=== PATIENT | female | born 1985 | race Caucasian/White ===

== ENCOUNTER 2018-03-09 08:00 | Outpatient (CLI) | payer MEDICAID ==
[2018-03-09 17:38] LABS: MUDS CUTOFF CONCENTRATIONS CUTOFF CONC BELOW:
[2018-03-09 18:33] LABS: AMPHETAMINE SCREEN,URINE NEGATIVE (NEGATIVE); BENZODIAZEPINES SCREEN, URINE NEGATIVE (NEGATIVE); COCAINE SCREEN URINE NEGATIVE (NEGATIVE); METHADONE SCREEN, URINE NEGATIVE (NEGATIVE); METHAMPHETAMINES SCREEN, URINE NEGATIVE (NEGATIVE); OPIATE SCREEN, URINE NEGATIVE (NEGATIVE); OXYCODONE SCREEN, URINE NEGATIVE (NEGATIVE); PROPOXYPHENE SCREEN, URINE NEGATIVE (NEGATIVE); TRICYCLIC ANTIDEPRESSANT,URINE NEGATIVE (NEGATIVE)
== END 2018-03-09 23:59 ==
LOC: LAB.R 08:00
PROVIDERS: ATTEND Registered Nurse
DX: Z36.9 Encounter for antenatal screening, unspecified (principal)
CPT/HCPCS: 80306; 87797

== ENCOUNTER 2018-03-09 15:53 | Outpatient (CLI) | payer MEDICAID ==
[2018-03-09 17:11] LABS: BASOPHILS # (AUTO) 0.1 10^3/uL (0.0-0.1); BASOPHILS % (AUTO) 0.7 %; EOSINOPHILS # (AUTO) 0.1 10^3/uL (0.0-0.7); HGB - HEMOGLOBIN 10.9 g/dL (12.0-16.0); LYMPHOCYTES # (AUTO) 1.9 10^3/uL (1.5-3.5); MEAN CORPUSCULAR HEMOGLOBIN 27.2 pg (27.0-31.0); MEAN CORPUSCULAR HGB CONC 32.4 g/dL (32.0-36.0); MEAN CORPUSCULAR VOLUME 83.8 fL (81.0-99.0); MEAN PLATELET VOLUME 8.7 fL (7.9-10.8); MONOCYTES # (AUTO) 0.5 10^3/uL (0.0-1.0); MONOCYTES % (AUTO) 5.3 %; NEUTROPHILS # (AUTO) 6.8 10^3/uL (1.5-6.6); PLT - PLATELET COUNT 220 10^3/uL (130-450); RED BLOOD COUNT 4.03 10^6/uL (4.20-5.40); RED CELL DISTRIBUTION WIDTH 13.6 % (12.0-15.0); WHITE BLOOD COUNT 9.3 x10^3/uL (4.8-10.8)
[2018-03-09 17:37] LABS: HB2 TOTAL 11.3 g/dL; HEMOGLOBIN A1C 0.37 g/dL; HEMOGLOBIN A1C % 5.1 % (4.6-6.2)
[2018-03-09 18:11] LABS: BILIRUBIN,URINE NEGATIVE (NEGATIVE); GLUCOSE, URINE (UA) NEGATIVE (NEGATIVE); KETONES,URINE (UA) NEGATIVE (NEGATIVE); LEUKOCYTE ESTERASE, URINE MODERATE (NEGATIVE); NITRITE,URINE NEGATIVE (NEGATIVE); OCCULT BLOOD,URINE NEGATIVE (NEGATIVE); PH,URINE 6.5 PH (5.0-7.5); PROTEIN,URINE NEGATIVE (NEGATIVE); UROBILINOGEN,URINE 0.2 (NORMAL) E.U./dL (NORMAL)
[2018-03-09 18:29] LABS: CLARITY,URINE CLEAR (CLEAR)
[2018-03-09 18:32] LABS: BACTERIA,URINE Few /HPF (None Seen); RBC,URINE 0-5 /HPF (0-5); SQUAMOUS EPITHELIAL CELL,UR MANY Squamous (<= Few)
[2018-03-10 12:53] LABS: HEPATITIS B SURFACE ANTIGEN NON-REACTIVE (NON-REACTIVE); HEPATITIS C ANTIBODY NON-REACTIVE (NON-REACTIVE)
[2018-03-10 14:21] LABS: HIV AG/AB 4TH GEN NON-REACTIVE (NON-REACTIVE)
[2018-03-11 12:02] LABS: HSV 2 IGG TYPE SPECIFIC AB <0.90 index
== END 2018-03-09 15:54 | disposition home or self-care (01) ==
LOC: LAB 15:53
PROVIDERS: ATTEND Registered Nurse
DX: Z36.9 Encounter for antenatal screening, unspecified (principal)
CPT/HCPCS: 36415; 80306; 81001; 81599; 82950; 83036; 85025; 86695; 86696; 86762; 86803; 86850; 86900; 86901; 87086; 87340; 87389; 87797

== ENCOUNTER 2018-03-10 21:08 | Outpatient (CLI) | payer MEDICAID ==
--- NOTE | 2018-03-10 22:33 | Ultrasound Report ---
Reason: ENCOUNTER FOR SCREENING,UNSPECIFIED Procedure Date: 03/10/2018 Accession Number: [id number] / [id number] Procedure: US - OB Detailed Eval CPT Code: FULL RESULT: EXAM: COMPLETE OBSTETRICAL ULTRASOUND EXAM DATE: 03/10/2018 10:11 PM. CLINICAL HISTORY: anatomic survey. COMPARISON: None. TECHNIQUE: Real-time sonographic evaluation of the fetus performed by the screening nurse. Multiple service support representative static images were saved for review. Additional transvaginal imaging to more accurately evaluate cervical length/placental position/etc. DATING: Established EGA 37 weeks 4 days with BETH 03/27/2018 based on LMP. EGA 37 weeks 4 days with BETH 03/27/2018 based on the current ultrasound. GENERAL EVALUATION Juarez . Cardiac activity: 133 bpm. movement: Visualized. Presentation: Cephalic. Placenta: Posterior position. No evidence for previa. Umbilical cord: 3 vessel cord. Central placental cord origin. Amniotic fluid: Subjectively normal. MVP 4.9 cm. BIOMETRY Bi-Parietal Diameter (BPD): 9.2 cm, 37 weeks 3 days Head Circumference (HC): 33.7 cm, 38 weeks 5 days Abdominal Circumference (AC): 33 cm, 37 weeks 0 days Femur Length (FL): 7.2 cm, 36 weeks 6 days Estimated Weight: 3137 g, 49 percentile for 37 weeks 4 days. ANATOMY Exam limited by late gestational age and maternal body habitus. The profile, face/nose/lips, 4 chamber heart, stomach, abdominal wall and cord insertion, diaphragm, kidneys, and bladder were visualized and demonstrate no abnormality. MATERNAL STRUCTURES Uterus: Unremarkable. Cervix: Long and closed. Transvaginal length 3.2 cm. Right ovary/adnexa: Unremarkable. Left ovary/adnexa: Unremarkable. Free fluid: None. IMPRESSION: 1. Juarez live intrauterine with gestational age 37 weeks 4 days based on today's exam. 2. Estimated weight is within expected limits for assigned dating. 3. Normal limited anatomic survey. No anatomic abnormalities are detected at this time. RADIA ADDENDUM: 03/10/18 22:40 Call report: Discussed by telephone with Dr. Person at 2240.
== END 2018-03-10 21:09 | disposition home or self-care (01) ==
LOC: DI 21:08
PROVIDERS: ATTEND Registered Nurse
DX: Z36.9 Encounter for antenatal screening, unspecified (principal); Z3A.37 37 weeks gestation of pregnancy
CPT/HCPCS: 76811

== ENCOUNTER 2018-03-13 07:59 | Outpatient (CLI) | payer MEDICAID | END 2018-03-13 08:00 | disposition home or self-care (01) | LOC: LAB 07:59 | PROVIDERS: ATTEND Registered Nurse | DX: O99.810 Abnormal glucose complicating pregnancy (principal) | CPT/HCPCS: 36415; 82951; 82952 ==

== ENCOUNTER 2018-03-24 22:34 | Inpatient (IN) | payer MEDICAID ==
[2018-03-24] MEDS ORDERED: SODIUM CHLORIDE FLUSH 0.9% 10 ML SYRINGE IVP PRN (22:56)
[2018-03-24] MEDS ORDERED: OXYTOCIN/SODIUM CHLORIDE 500 ML IV ONE (23:01)
[2018-03-24 23:17] LABS: RUPTURE OF MEMBRANES PLUS POSITIVE (NEGATIVE)
[2018-03-24] MEDS: LACTATED RINGERS 1,000 ML IV SCH (23:38)
[2018-03-24] MEDS ORDERED: OXYTOCIN/SODIUM CHLORIDE 500 ML IV SCH (23:45)
[2018-03-24 23:50] LABS: BASOPHILS # (AUTO) 0.1 10^3/uL (0.0-0.1); EOSINOPHILS # (AUTO) 0.1 10^3/uL (0.0-0.7); EOSINOPHILS % (AUTO) 0.9 %; HGB - HEMOGLOBIN 11.4 g/dL (12.0-16.0); LYMPHOCYTES # (AUTO) 2.4 10^3/uL (1.5-3.5); LYMPHOCYTES % (AUTO) 23.4 %; MEAN CORPUSCULAR HEMOGLOBIN 27.4 pg (27.0-31.0); MEAN CORPUSCULAR HGB CONC 33.8 g/dL (32.0-36.0); MEAN PLATELET VOLUME 8.8 fL (7.9-10.8); MONOCYTES # (AUTO) 0.5 10^3/uL (0.0-1.0); MONOCYTES % (AUTO) 5.1 %; NEUTROPHILS % (AUTO) 69.6 %; PLT - PLATELET COUNT 239 10^3/uL (130-450); RED BLOOD COUNT 4.17 10^6/uL (4.20-5.40); RED CELL DISTRIBUTION WIDTH 14.1 % (12.0-15.0); WHITE BLOOD COUNT 10.1 x10^3/uL (4.8-10.8)
[2018-03-25] MEDS ORDERED: fent/BUPIV 2 MCG/0.125% 250 ML EP ONE (00:11)
[2018-03-25] MEDS ORDERED: SODIUM CHLORIDE FLUSH 0.9% 10 ML SYRINGE IVP SCH (01:00)
[2018-03-25] MEDS ORDERED: NALOXONE 0.4 MG/ML VIAL IVP PRN (01:10)
[2018-03-25] MEDS ORDERED: fent/BUPIV 2 MCG/0.125% 250 ML EP PRN (01:10)
[2018-03-25] MEDS ORDERED: ONDANSETRON 4 MG/2 ML VIAL IVP PRN (01:10)
[2018-03-25] MEDS ORDERED: LACTATED RINGERS 500 ML IV ONE (01:10)
[2018-03-25] MEDS ORDERED: ePHEDrine 50 MG/ML VIAL IVP PRN (01:10)
[2018-03-25] MEDS ORDERED: diphenhydrAMINE INJ 50 MG/ML VIAL IVP PRN (01:10)
[2018-03-25] MEDS ORDERED: NALBUPHINE 10 MG/ML AMP IVP PRN (01:10)
[2018-03-25] MEDS ORDERED: METOCLOPRAMIDE 10 MG/2 ML VIAL IVP PRN (01:10)
--- NOTE | 2018-03-25 01:14 | ANESTHESIA ---
Pre-Anesthesia VS, & Labs - Diagnosis patient desires labor analgesia - Procedure labor epidural Vital Signs: Temp Pulse Resp BP Pulse Ox 38.0 C H 99 20 141/74 H 98 03/24/18 22:49 03/24/18 23:00 03/24/18 23:00 03/24/18 23:00 03/24/18 23:00 Height 5 ft 2 in Weight (kg) 99.79 kg - NPO Other (clear liquids from now until delivery) - Is Patient ?: Yes - Lab Results Current Lab Results: Laboratory Tests 03/24/18 23:31: WBC 10.1, RBC 4.17 L, Hgb 11.4 L, Hct 33.8 L, MCV 81.0, MCH 27.4, MCHC 33.8, RDW 14.1, Plt Count 239, MPV 8.8, Neut # (Auto) 7.0 H, Lymph # (Auto) 2.4, [place] # (Auto) 0.5, Eos # (Auto) 0.1, Baso # (Auto) 0.1, Absolute Nucleated RBC 0.00, Nucleated RBC % 0.0 Fish Bones: 03/24/18 23:31 Home Medications and Allergies Active Medications Diphenhydramine HCl (Benadryl Inj) 12.5 - 25 mg IVP Q6HR PRN PRN Reason: ITCHING Lactated Ringer's (Lr) 1,000 mls @ 150 mls/hr IV .Q6H40M [facility] Last Admin: 03/24/18 23:38 Dose: 150 mls/hr Sodium Chloride (Normal Saline Flush 0.9%) 10 ml IVP PRN PRN PRN Reason: NEEDED PER PROVIDER ORDERS Sodium Chloride (Normal Saline Flush 0.9%) 10 ml IVP 0100,0900,1700 [facility] Last Admin: 03/24/18 23:58 Dose: 10 ml Allergies/Adverse Reactions: Allergies Allergy/AdvReac Type Severity Reaction Status Date / Time No Known Drug Allergies Allergy Verified 03/24/18 23:41 Anes History & Medical History - Anesthetic History Anesthesia Complications: reports: No previous complications - Medical History Cardiovascular: reports: None Pulmonary: reports: None Gastrointestinal: reports: GERD Endocrine/Autoimmune: reports: None Blood Disorders: reports: None Smoking Status: Never smoker Other Past Medical History: increased BMI - Obstetrical History Plan for Delivery: vagina with epidural OB Anesthesia History: multipura with history of uneventful vaginal deliveries and epidurals each time Exam General: Alert Dental: WNL Mouth Opening: Greater than 4 Fingerbreadths Neck Mobility: Normal Mallampati classification: II Thyromental Distance: greater than 6 cm Respiratory: Lungs clear Cardiovascular: Regular rate Mental/Cognitive Status: Alert/Oriented X3 Plan Anesthesia Type: Epidural Consent for Procedure(s) Verified and Reviewed: Yes Code Status: Attempt Resuscitation ASA classification: 2-Mild systemic disease Is this case an emergency?: No
[2018-03-25] MEDS ORDERED: LIDOCAINE-MPF 1% 30 ML VIAL ONE (02:11)
[2018-03-25] MEDS ORDERED: miSOPROStol 200 MCG TABLET ONE (05:02)
--- NOTE | 2018-03-25 05:26 | HISTORY & PHYSICAL EXAMINATION ---
Admit History - Visit Reason Visit Reason: Contractions, Membranes rupture (@ 2230) - : 6 Parity: 4 Premature: 0 Ectopic: 0 : 1 Care: positive: [facility] (beginning @ 37 weeks x3 total visits) Risk/History: positive: No care Complications This : positive: Other (3 visits, beginning @ 37 weeks' gestation) Smoking Status: Never smoker - Mother's Labs Mother's Blood Type: positive: O Mother's RH: positive: Positive GBS: positive: Group B Step Negative Rubella Status: positive: Immune Meds/Allgy - Allergies Allergies/Adverse Reactions: Allergies Allergy/AdvReac Type Severity Reaction Status Date / Time No Known Drug Allergies Allergy Verified 03/24/18 23:41 Review of Systems - Constitutional Constitutional: denies: Fatigue, Fever, Chills - Eyes Eyes: denies: Blurred vision, Field loss - Cardiovascular Cariovascular: denies: Irregular heart rate, Palpitations, Chest pain, Edema - Respiratory Respiratory: reports: SOB with exertion. denies: Cough, Sputum production, Wheezing, Snoring, SOB at rest - Gastrointestinal Gastrointestinal: reports: Abdominal pain. denies: Constipation, Diarrhea, Change in bowel habits, Nausea, Vomiting - Genitourinary Genitourinary: reports: Frequency, Urgency. denies: Dysuria, Flank pain - Musculoskeletal Musculoskeletal: reports: Back pain. denies: Muscle pain, Muscle aches - Integumentary Integumentary: denies: Rash, Pruritis, Lesions - Neurological Neurological: denies: General weakness, Focal weakness, Headache - Psychiatric Psychiatric: denies: Depression, Anxiety Physical - Abdominal Exam Vital Signs: Temp Pulse Resp BP Pulse Ox 38.0 C H 99 20 141/74 H 98 03/24/18 22:49 03/24/18 23:00 03/24/18 23:00 03/24/18 23:00 03/24/18 23:00 Contraction Frequency (min/apart): 2-3 Contraction Intensity: positive: Strong Uterine Resting Tone: positive: Soft - Monitoring Heart Rate Baseline: 120 Strip Review: positive: Category I - Presentation Presentation: positive: Vertex - Vaginal Exam Membranes: positive: Membranes ruptured Dilation (in cm): 5 Effacement (%): 70 Station: positive: -2 Cervical Position: positive: Midposition - Speculum Exam Speculum Exam Performed: positive: No Findings: positive: Gross leak, Nitrazine - Other Notes Labor Progress Note/Additional Text: Liliam Otoole is a 32 y/o @ 39w4d by 20+week ultrasound who received care beginning @ 37 weeks x3 total visits. labs were unremarkable @ that time & FAS conducted @ that time was WNL w/o previa. She denies previous complications. Her intent w/ her visit for the ultrasound was to terminate the , but she was advanced in her gestational age & was told she couldn't terminate @ the location where she presented. Obtaining a termination @ that point was both cumbersome & cost-prohibitive, so she elected to continue the with an intent to adopt the baby out. She has arranged a 3rd libertarian adoption through a social service coordinator agency & has notified the agency that she is in labor. She presents this evening w/ a complaint of SROM @ 2230 & spontaneous subsequent onset of contractions. She is hoping for an epidural. PMH: depression, presently stable PSH: None obhx: FTSVD x4, no complications, oldest 5 years, SAB x1, first trimester, no complications gynhx: denies hx STI, NILM pap w/ neg HRHPV this , denies hx of abnormals, desires pp salpingectomy, scheduled for 04/15/18 sochx: Relocated from [place] to [place] 1 month ago, unemployed, partnered, denies DV, denies ETOH/drugs/tobacco, initial presentation UTOX negative, plans to move to [place] to find work after her salpingectomy, living w/ her sister @ present PE: GEN: AAOX3, NAD WA gravid, obese female HEENT: grossly normocephalic, atraumatic, multiple dental caries RESP: cta b/l t/o CARDIAC: rrr nls1s2, no murmur ABD: obese, gravid, nt, palpable strong contractions, lie longitudinal, presentation cephalic EFW difficult to assess secondary to large pannus OB: efm bl 130s +accels, no decels, mod clarisa; toco: ucs q4-7 minutes, palp strong : grossly SROM for CAF MS: FROM t/o, no deformity, no edema/erythema SKIN: warm, well-perfused, c/d/i, no lesion, +tattoos NEURO: no focal deficit PSYCH: normal mood & affect, pleasantly conversant Plan for Labor - Plan For Labor I expect patient to be DC'd or transferred within 96 hours.: Yes Plan for Labor: 1. Admit, Cbc/clot to hold 2. UTOX 3. Epidural placement per pt request 4. Reassess cervical status x4 hours, earlier PRN 5. Anticipate 6. Pt desires suppression s/p delivery, plan cabergoline pp 7. SW consult in am, cord tox for
--- NOTE | 2018-03-25 05:39 | DELIVERY NOTE ---
Delivery Note - Labor Labor: positive: Spontaneous - Delivery Method Delivery Method: positive: Spontaneous vaginal delivery - Presentation Presentation: positive: Vertex, GOOD - right occiput anterior - Nuchal Cord Nuchal Cord: positive: None - Anesthetic Anesthetic Type: - Amniotic Fluid Description Amniotic Fluid Description: positive: Clear (SROM x6.5 hours, afebrile) - Episiotomy Type Episiotomy Type: positive: None - Laceration Laceration: positive: None - Delivery Outcome Delivery Outcome: positive: Livebirth - [place] : positive: Bulb syringe, Stimulated, Warmed, [place] used, Warmer used [place] sex: positive: Male - Cord Cord: positive: 3 vessels - Placenta Placenta: positive: Intact, Spontaneous - Estimated Blood Loss Estimated Blood Loss (in cc): 150 - Post Delivery Events Post Delivery Events: positive: No post delivery events - Delivery Comments (Free Text/Narrative) Delivery Comments (Free Text/Narrative): Liliam Otoole is a 32 y/o [id number] who presented @ 39w5d by 2nd trimester US w/ complaint of SROM @ 2230. She received epidural anesthesia per request & progressed spontaneously to complete dilatation @ 0453, for a total 1st stage duration of 6 hours, 23 minutes. She has an isolated deceleration to ramesh in 60s w/ return to baseline w/ position changes immediately prior to complete dilatation; FHTs were otherwise cat I-II w/o evidence of hypoxemia. She pushed w/ direction to achieve viable male in GOOD position over an intact perineum @ 0507, for a total 2nd stage duration of 14 minutes. vigorous w/ spontaneous, lusty cry. Handed to waiting RN per pt request. Cord clamped & cut x2, cord segment obtained for cord gases & cord tox, cord blood obtained, 3vc noted. Active management of the 3rd stage w/ Pitocin in IV fluids; placenta del spontaneously & intact, trev, @ 0511, for a total 3rd stage duration of 4 minutes. FF @ U. Vagina & perineum inspected & found to be intact. EBL 150mL. Mother & stable. Apgars 9/9, weight pending. Plans to adopt out through manager social agency & plans to suppress . SW consult ordered.
[2018-03-25] MEDS ORDERED: HYDROCORTISONE 1% CREAM 28 GM TUBE PR PRN (05:40)
[2018-03-25] MEDS ORDERED: MAGNESIUM HYDROXIDE 2,400 MG/30 ML UDC PO PRN (05:40)
[2018-03-25] MEDS ORDERED: HYDROCORTISONE/PRAMOXINE 10 GM PR PRN (05:40)
[2018-03-25] MEDS ORDERED: CABERGOLINE 0.5 MG TABLET PO ONE (05:40)
[2018-03-25] MEDS ORDERED: WITCH HAZEL/GLYCERIN 1 EACH MED..PAD TOP PRN (05:40)
[2018-03-25] MEDS: LACTATED RINGERS 1,000 ML IV SCH (06:06)
[2018-03-25 06:39] LABS: MUDS CUTOFF CONCENTRATIONS CUTOFF CONC BELOW:
[2018-03-25 06:50] LABS: AMPHETAMINE SCREEN,URINE NEGATIVE (NEGATIVE); BENZODIAZEPINES SCREEN, URINE NEGATIVE (NEGATIVE); COCAINE SCREEN URINE NEGATIVE (NEGATIVE); METHADONE SCREEN, URINE NEGATIVE (NEGATIVE); METHAMPHETAMINES SCREEN, URINE NEGATIVE (NEGATIVE); OPIATE SCREEN, URINE NEGATIVE (NEGATIVE); OXYCODONE SCREEN, URINE NEGATIVE (NEGATIVE); PROPOXYPHENE SCREEN, URINE NEGATIVE (NEGATIVE); TRICYCLIC ANTIDEPRESSANT,URINE NEGATIVE (NEGATIVE)
[2018-03-25] MEDS: IBUPROFEN 800 MG TABLET PO SCH ×3 (06:57→23:40)
[2018-03-25] MEDS ORDERED: SODIUM CHLORIDE FLUSH 0.9% 10 ML SYRINGE ONE (10:43)
[2018-03-25] MEDS: DOCUSATE SODIUM 100 MG CAPSULE PO SCH ×2 (10:52→23:40)
[2018-03-25] MEDS: ACETAMINOPHEN 500 MG TABLET PO SCH ×3 (10:52→23:40)
[2018-03-26 07:48] VITALS: BP 113/89
[2018-03-26] MEDS: ACETAMINOPHEN 500 MG TABLET PO SCH (08:42)
[2018-03-26] MEDS: DOCUSATE SODIUM 100 MG CAPSULE PO SCH (08:43)
[2018-03-26] MEDS: IBUPROFEN 800 MG TABLET PO SCH (08:43)
--- NOTE | 2018-03-26 09:33 | Discharge Plan ---
Discharge Plan Disposition: 01 Home, Self Care Condition: Good Prescriptions: Ibuprofen [Motrin] 800 mg PO Q6H #30 tablet Diet: Regular Activity Restrictions: pelvic rest x6 weeks Shower Restrictions: No Driving Restrictions: No Weight Bearing: Full Weight Instruction Topics: Vaginal After, Exercises Kegel No Smoking: If you smoke, Please STOP! Call for help. Follow-up with: Roberto Person, FUAD, JANE [Provider Admit Priv/Credential] -
--- NOTE | 2018-03-26 10:14 | DISCHARGE SUMMARY ---
"Discharge Summary Admit Date: 03/24/18 Discharge Date: 03/26/18 Discharging Provider: JR Code Status: Attempt Resuscitation Condition at Discharge: Good Discharge Disposition: Home, Self Care Discharge Facility Name: [facility] - DIAGNOSES Admission Diagnoses: SPONTANEOUS LABOR @ TERM; SROM FOR CAF Discharge Diagnoses with Status of Each Condition: SUPPRESSION - HPI History of Present Illness: Liliam Otoole is a 32 y/o [id number] who presented in active, spontaneous labor @ term. She received epidural anesthesia per request & progressed w/o intervention to complete dilatation & delivered a viable male vaginally w/o complication over an intact perineum w/ minimal blood loss. - CONSULTS | PROCEDURES Consultations: Anesthesia, Social Work Procedures: Epidural Placement - HOSPITAL COURSE Hospital Course: , Liliam is ambulating & voiding w/o difficulty or discomfort. She has taken cabergoline 1mg po x2 doses & is not noting any breast tenderness or sensation of fullness. She is passing flatus & tolerating a regular diet. She is having some lumbar back discomfort secondary to epidural placement but otherwise reports adequate pain control w/ non-opioid analgesia. She has been assessed by social work & her intended adoptive mother has arrived from [place]. The adoption proceeding is underway & Liliam feels positively about this process & her decision-making. She is not planning to return to work immed iately but is seeking employment in [place] & intends to relocate her family there when she feels she has the financial capacity to do so. She denies hx of pp depression. She reports that her sister & her are very supportive. She reports minimal lochia rubra. She intends to have a salpingectomy w/in the month & has her pre-op scheduled in the clinic. She is able to fully articulate pp warning s/sx, including pp depression s/sx, and pp aftercare instructions. She is eager to leave the hospital. - ALLERGIES Allergies/Adverse Reactions: Allergies Allergy/AdvReac Type Severity Reaction Status Date / Time No Known Drug Allergies Allergy Verified 03/24/18 23:41 - MEDICATIONS Home Medications: Ambulatory Orders Medication Instructions Recorded Confirmed Ibuprofen [Motrin] 800 mg PO Q6H #30 tablet 03/26/18 - PHYSICAL EXAM AT DISCHARGE General Appearance: positive: No acute distress, Alert Eyes Bilateral: positive: Normal inspection, EOMI Respiratory: positive: No respiratory distress, Breath sounds nml Cardiovascular: positive: Regular rate & rhythm, No murmur Abdomen: positive: Non-tender, No distention, Other (FFu-1) Back: positive: Nml inspection Skin: positive: Color nml, No rash, Warm, Dry Extremities: positive: Non-tender, Full ROM, Nml appearance, No pedal edema. negative: Calf tenderness, Fernando's sign/cords Neurologic/Psychiatric: positive: Oriented x3, CN's nml (2-12), Motor nml, Sensation nml, Mood/affect nml Physical Exam Other/Comments: Perineum intact, minimal lochia rubra - LABS Result Diagrams: 03/24/18 23:31 - FOLLOW UP Follow Up: x1 week in outpt clinic w/ Roberto Person CNM, earlier PRN - TIME SPENT Time Spent in Discharge (Minutes): 20"
[2018-03-26] MEDS ORDERED: CABERGOLINE 0.5 MG TABLET PO ONE (11:00)
--- NOTE | 2018-03-26 12:26 | Labor Flowsheet ---
Labor Flowsheet Datetime Report Generated by CPN: 03/26/2018 12:26 Datetime: 03/26/2018 07:38 VITAL SIGNS NBP Sys/Sarah/Mean (mmHg): 113 : 89 : 93 Pulse: 85 SpO2 (%): 100 LaborFlag: Labor Datetime: 03/25/2018 05:09 Membranes Ruptured Date/Time: 03/24/2018 22:30 Amniotic Fluid Odor: Normal Datetime: 03/25/2018 05:07 UTERINE ACTIVITY Monitor Mode: External Frequency (min): 1-2 Quality: Moderate Duration (sec): 60-90 Pattern: Normal: <= 5 Contractions in 10 Minutes Resting Tone (Palpate): Relaxed ASSESSMENT A Monitor Mode: External US FHR Baseline Rate : 125 Variability: Minimal - Undetectable to <=5 bpm Accelerations: None Decelerations: None Category: Category II Datetime: 03/25/2018 05:05 STAGE 2 Pushing: Coached on Pushing Pushing Position: Pushing with Contractions Pushing Progress: Presenting Part Visible Datetime: 03/25/2018 05:01 COMMUNICATION Communication: Provider at Bedside Provider Notified (Name): M. Milagrosa, CNM Datetime: 03/25/2018 05:00 Actions for Decelerations: Side to Side; Oxygen Applied; IV Bolus; Sterile Vaginal Exam Datetime: 03/25/2018 04:52 VAGINAL EXAM Dilatation (cm): 10.0 Effacement (%): 100 Station: 3 Exam by: Any Quintanilla RN Datetime: 03/25/2018 04:51 Communication Comments: Call placed to provider requesting to come in, decel down to 60s, RNs perfo rming intrauterine resuscitation Datetime: 03/25/2018 04:50 PATIENT CARE IV/Blood Work: IV Bolus Started Oxygen Amount (LPM): 0 Oxygen Method: Non-Rebreather Patient Position/Activity: Left Lateral Datetime: 03/25/2018 04:19 Comments: prolonged deceleration Datetime: 03/25/2018 04:02 Patient Care Comments: using peanut ball in fire hydrant position. Datetime: 03/25/2018 03:17 Stage of : Labor Notification Reason: Status Update; Status; Labor Status; Uterine Activity; Pain Datetime: 03/25/2018 03:06 Monitor Interventions for UA: Tea Adjusted Datetime: 03/25/2018 02:39 Monitor Interventions for FHR: Ultrasound Adjusted Datetime: 03/25/2018 02:08 Respirations: 16 Temperature (C): 36.7 Datetime: 03/25/2018 01:23 I/O Interventions: Quinonez Cath Inserted Datetime: 03/25/2018 01:09 PAIN Pain Scale: 0 Pain Presence: None/Denies TEACHING Instructional Method: Verbal Plan of Care: Plan of Care Discussed; Vaginal Delivery; Labor Pain Management: Epidural; Comfort Measures Datetime: 03/25/2018 01:00 Vibroacoustic Stim: Datetime: 03/25/2018 00:52 ANESTHESIA Anesthesia Plans: Epidural Epidural Procedure Other: Pump Started Datetime: 03/25/2018 00:47 Anesthesia Comments: 300ml bolus started Datetime: 03/25/2018 00:38 Epidural Procedure: Cath Placed Datetime: 03/25/2018 00:25 PROCEDURE TIME OUT Procedure Verify: Correct Patient Identity; Correct Side and Site are Marked; Accurate Procedure Co nsent Form; Agreement on Procedure to be Done; Correct Patient Position; Addressed Need to Administer Antibiotics or Fluids for Irrigation; Safety Precautions Based on Patient History or Medication Use
== END 2018-03-26 11:50 | disposition home or self-care (01) | DRG 807 ==
LOC: WFO 22:34 → FBP 22:36
PROVIDERS: ADMIT Registered Nurse; ATTEND Registered Nurse
PROC: 10E0XZZ Delivery of Products of Conception, External Approach (ICD-10-PCS; principal; 2018-03-25)
DX: O80 Encounter for full-term uncomplicated delivery (principal); Z37.0 Single live birth; Z3A.39 39 weeks gestation of pregnancy; Z64.0 Problems related to unwanted pregnancy
CPT/HCPCS: 80306; 80307; 84112; 85025; 99213

== ENCOUNTER 2018-05-13 09:26 | Day surgery (SDC) | payer MEDICAID ==
[2018-05-13] MEDS ORDERED: BUPIVACAINE 0.5%-EPI 1:200000 PF 30 ML VIAL ONE (09:36)
[2018-05-13 09:48] LABS: HCG UR QUAL NEGATIVE
[2018-05-13] MEDS ORDERED: BUPIVACAINE 0.5%-EPI 1:200000 PF 30 ML VIAL SUBQ ONE ×2 (09:48→11:35)
--- NOTE | 2018-05-13 09:49 | ANESTHESIA ---
Pre-Anesthesia VS, & Labs - Diagnosis Desires permanent sterilization - Procedure Laparoscopic bilateral salpingectomy Height 5 ft 2 in - NPO >8 hours - Is Patient ?: No - Lab Results Lab results reviewed: Yes Home Medications and Allergies No Known Home Medications 04/21/18 Allergies/Adverse Reactions: Allergies Allergy/AdvReac Type Severity Reaction Status Date / Time No Known Drug Allergies Allergy Verified 03/24/18 23:41 Anes History & Medical History - Anesthetic History Anesthesia Complications: reports: No previous complications Family history of Anesthesia Complications: Denies Family history of Malignant Hyperthermia: Denies - Medical History Cardiovascular: reports: None Pulmonary: reports: None Urinary: reports: None Neuro: reports: None Musculoskeletal: reports: Chronic back pain Endocrine/Autoimmune: reports: None Blood Disorders: reports: None Skin: reports: None Smoking Status: Never smoker Psychosocial: reports: No issues indicated Exam General: Alert, Oriented x3, Cooperative Dental: WNL Mouth Opening: Greater than 4 Fingerbreadths Neck Mobility: Normal Mallampati classification: I Thyromental Distance: greater than 6 cm Respiratory: Lungs clear Cardiovascular: Regular rate Neurological: Normal speech Mental/Cognitive Status: Alert/Oriented X3 Cognitive Status: Within normal limits Plan Anesthesia Type: General Consent for Procedure(s) Verified and Reviewed: Yes Code Status: Attempt Resuscitation ASA classification: 2-Mild systemic disease Is this case an emergency?: No
[2018-05-13] MEDS ORDERED: LACTATED RINGERS 1,000 ML IV ONE (09:55)
[2018-05-13] MEDS ORDERED: SCOPOLAMINE PATCH TOP ONE (10:04)
[2018-05-13] MEDS ORDERED: PROPOFOL 200 MG/20 ML VIAL IVP ONE (11:49)
[2018-05-13] MEDS ORDERED: KETOROLAC 30 MG/ML VIAL IVP ONE (11:49)
[2018-05-13] MEDS ORDERED: NEOSTIGMINE 1 MG/1 ML 10 ML MDV IVP ONE (11:49)
[2018-05-13] MEDS ORDERED: fentaNYL 100 MCG/2 ML VIAL IVP ONE (11:49)
[2018-05-13] MEDS ORDERED: ROCURONIUM 50 MG/5 ML VIAL IVP ONE (11:49)
[2018-05-13] MEDS ORDERED: DEXAMETHASONE 4 MG/ML VIAL IVP ONE (11:49)
[2018-05-13] MEDS ORDERED: MIDAZOLAM 2 MG/2 ML VIAL IVP ONE (11:49)
[2018-05-13] MEDS ORDERED: ONDANSETRON 4 MG/2 ML VIAL IVP ONE (11:49)
[2018-05-13] MEDS ORDERED: LIDOCAINE-MPF 2% 5 ML VIAL IM ONE (11:49)
[2018-05-13] MEDS ORDERED: HYDROmorphone 0.5 MG/0.5 ML SYRINGE ONE (11:58)
--- NOTE | 2018-05-13 12:01 | OPERATIVE REPORT ---
Operative Report - General Procedure Date: 05/13/18 Planned Procedure: Laparoscopic salpingectomy bilat Pre-Op Diagnosis: desires sterilization Procedure Performed: Bilat LSC salpijgectomy Post Op Diagnosis: sterilized - Procedure Note Primary Surgeon: sherry Secondary Surgeon: jh Anesthesia Technique: General ET tube Pathology: tubes and a right paratubal cyst to path IV Fluids (mL): 300 Estimated Blood Loss (mL): 20 Urine Output (mL): 0 Findings: Normal uterus, ovaries, tubes, liver, gallbladder Complications: none
[2018-05-13] MEDS ORDERED: HYDROmorphone 2 MG TABLET PO PRN (12:04)
--- NOTE | 2018-05-13 12:07 | Discharge Plan ---
Discharge Plan Disposition: 01 Home, Self Care Condition: Good Diet: Regular Activity Restrictions: Activity as Tolerated Shower Restrictions: Yes (not for 24h) Driving Restrictions: Yes (not while on narcotics) No Smoking: If you smoke, Please STOP! Call for help. Follow-up with: Jackie Doss MD [Provider Admit Priv/Credential] -
[2018-05-13] MEDS ORDERED: HYDROmorphone 2 MG TABLET ONE (12:49)
[2018-05-13] MEDS ORDERED: LACTATED RINGERS 1,000 ML IV SCH (13:00)
[2018-05-13] MEDS ORDERED: ONDANSETRON 4 MG/2 ML VIAL ONE (13:04)
[2018-05-13 13:47] VITALS: BP 108/68
--- NOTE | 2018-05-13 15:40 | OPERATIVE REPORT ---
DATE OF SERVICE: 05/13/2018 Physician: Jackie Doss MD PREOPERATIVE DIAGNOSIS: Desires surgical sterilization. POSTOPERATIVE DIAGNOSIS: Desires surgical sterilization. PROCEDURE: Laparoscopic bilateral salpingectomy. SURGEON: Jackie Doss MD INTERIOR WIRER: None. ANESTHESIA: General. ESTIMATED BLOOD LOSS: 20 mL. URINE OUTPUT: 0 mL - The patient voided immediately prior to arrival in the operating room. COUNTS: Correct x2. COMPLICATIONS: None apparent. DISPOSITION: Stable to recovery room. PROPHYLAXIS: SCDs to bilateral lower extremities. No antibiotics indicated. SPECIMENS: Fallopian tubes and a right paratubal cyst were sent to Pathology. FINDINGS: Normal uterus, ovaries, liver, gallbladder, and pelvic peritoneum seen. There was a right paratubal cyst. Otherwise, the tubes were normal. DESCRIPTION OF PROCEDURE: Patient was brought to the operating room, where she was induced with general anesthesia. Her arms were tucked to her sides, and she was placed in low lithotomy and Yellofin stirrups. She was prepped and draped in the usual sterile fashion. A speculum was placed, and a single-tooth tenaculum was applied to the anterior lip of the cervix. A HUMI uterine manipulator was introduced into the uterine cavity without any dilation required. The speculum and tenaculum were then removed. The surgeon's gloves were changed. All incisions were performed with an 11 blade. All incisions were numbed with 0.5% Marcaine with epinephrine prior to incising. The first incision was vertical umbilical. All incisions were 5 mm in size. The abdominal tissues were tented upward, and a 5 mm trocar was placed under direct visualization. The normal-sized trocar could not enter her peritoneal cavity due to obesity. A long trocar did achieve entry into the peritoneum. Patient was insufflated to 15 mmHg. Inspection under the trocar revealed no trauma. The scope was changed to a 30-degree. Two lateral trocars were placed approximately 3 cm inferior to and 11 cm lateral to the umbilicus on both sides. These were placed under direct visualization. The dissection was performed with a LigaSure. The right paratubal cyst was hanging from a small pedicle. This was transected, and the paratubal cyst was removed through the 5 mm port. The fimbriated end of the right fallopian tube was grasped, and the fallopian tube was dissected off of the mesosalpinx using the LigaSure. This was carried down to the area of the cornua, and the fallopian tube was amputated and brought out through the trocar. Following this, I did not feel like I had gotten close enough to the uterus. An additional segment of tube was transected so that the fallopian tube was completely excised. The left fallopian tube was then elevated and divided from the mesosalpinx down to the level of the cornua and then transected there. Complete removal of the fallopian tube was identified. The remainder of the pelvis looked normal. The insufflation was turned off, and we began to expel gas through the side ports. Both side ports were removed under direct visualization without any bleeding seen. The camera was removed from the umbilical ports. Patient was given 5 deep breaths, and then this port was removed. The skin was closed with an interrupted suture of 4-0 Monocryl on each one. Dermabond was then applied. The blood and Betadine was washed from her body. She was returned to the supine position prior to waking. TD: 05/13/2018 14:09 JOSEPH
--- NOTE | 2018-05-14 14:16 | PROVIDER PROGRESS NOTE ---
Subjective - Subjective Subjective: MD did not write order for discharge in error. Verbal order done. Pt met PACU discharge requirements before being discharged. Objective - Vital Signs/Intake & Output Intake & Output: Intake & Output 05/11/18 05/12/18 05/13/18 05/14/18 23:59 23:59 23:59 23:59 Intake Total 650 Output Total 20 Balance 630
== END 2018-05-13 09:27 | disposition home or self-care (01) ==
LOC: SDS 09:26
PROVIDERS: ATTEND Obstetrics & Gynecology
PROC: 0UT74ZZ Resection of Bilateral Fallopian Tubes, Percutaneous Endoscopic Approach (ICD-10-PCS; principal; 2018-05-13 10:30)
DX: Z30.2 Encounter for sterilization (principal); N83.8 Other noninflammatory disorders of ovary, fallopian tube and broad ligament; E66.9 Obesity, unspecified; Z68.38 Body mass index [BMI] 38.0-38.9, adult
CPT/HCPCS: 58661; 81025; A9270; J1170; J3490; J7120

== ENCOUNTER 2018-06-06 15:01 | Day surgery (SDC) | payer MEDICAID ==
[2018-06-06 15:22] LABS: BASOPHILS # (AUTO) 0.1 10^3/uL (0.0-0.1); BASOPHILS % (AUTO) 1.3 %; EOSINOPHILS # (AUTO) 0.1 10^3/uL (0.0-0.7); EOSINOPHILS % (AUTO) 1.4 %; HGB - HEMOGLOBIN 12.9 g/dL (12.0-16.0); LYMPHOCYTES # (AUTO) 1.9 10^3/uL (1.5-3.5); LYMPHOCYTES % (AUTO) 30.9 %; MEAN CORPUSCULAR HEMOGLOBIN 27.1 pg (27.0-31.0); MEAN CORPUSCULAR HGB CONC 32.3 g/dL (32.0-36.0); MEAN CORPUSCULAR VOLUME 83.9 fL (81.0-99.0); MEAN PLATELET VOLUME 8.1 fL (7.9-10.8); MONOCYTES # (AUTO) 0.4 10^3/uL (0.0-1.0); MONOCYTES % (AUTO) 6.5 %; NEUTROPHILS # (AUTO) 3.7 10^3/uL (1.5-6.6); NEUTROPHILS % (AUTO) 59.9 %; PLT - PLATELET COUNT 230 10^3/uL (130-450); RED BLOOD COUNT 4.76 10^6/uL (4.20-5.40); RED CELL DISTRIBUTION WIDTH 16.1 % (12.0-15.0); WHITE BLOOD COUNT 6.1 x10^3/uL (4.8-10.8)
--- NOTE | 2018-06-06 15:25 | ED Physician Documentation ---
PD HPI ABD PAIN - Stated complaint Stated Complaint: CHEST/BACK PX - Chief complaint Chief Complaint: Cardiac - History obtained from History obtained from: Patient - History of Present Illness Timing - onset: How many hours ago (2) Timing - duration: Hours (2) Timing - details: Abrupt onset Pain level max: 8 Pain level now: 8 Quality: Cramping, Aching, Pain Location: Epigastric Radiation: Chest Improved by: Other (took tylenol without relief) Worsened by: Other (nothing) Associated symptoms: Nausea, Vomiting (2 days ago when she had similar pain). No: Fever, Hematemesis, Diarrhea, Constipation, Melena, Hematochezia, Dysuria, Hematuria, Dizzy, Near syncope / syncope Recently seen: Not recently seen Review of Systems Ten Systems: 10 systems reviewed and negative Constitutional: denies: Fever, Chills Nose: denies: Rhinorrhea / runny nose, Congestion Skin: denies: Rash Musculoskeletal: denies: Neck pain, Back pain Neurologic: denies: Headache PD PAST MEDICAL HISTORY - Past Medical History Cardiovascular: None Respiratory: None Neuro: None Endocrine/Autoimmune: None GI: GERD : None HEENT: None Psych: Anxiety, Panic attacks Musculoskeletal: Chronic back pain Derm: None - Present Medications Home Medications: Ambulatory Orders Medication Instructions Recorded Confirmed No Known Home Medications 04/21/18 05/04/18 - Allergies Allergies/Adverse Reactions: Allergies Allergy/AdvReac Type Severity Reaction Status Date / Time No Known Drug Allergies Allergy Verified 06/06/18 15:06 - Social History Smoking Status: Never smoker PD ED PE NORMAL - Vitals Vital signs reviewed: Yes - General General: Alert and oriented X 3, No acute distress - HEENT HEENT: PERRL, Moist mucous membranes - Neck Neck: Supple, no meningeal sign - Cardiac Cardiac: RRR, Strong equal pulses - Respiratory Respiratory: No respiratory distress, Clear bilaterally - Abdomen Abdomen: Soft, Non tender, Non distended - Derm Derm: Warm and dry, No rash - Extremities Extremities: No edema - Neuro Neuro: Alert and oriented X 3 - Psych Psych: Normal mood, Normal affect Results - Vitals Vitals: Vital Signs - 24 hr 06/06/18 06/06/18 06/06/18 15:05 15:06 17:45 Temperature 37.0 C 37.0 C 36.0 C L Heart Rate 70 70 79 Respiratory 18 18 18 Rate Blood Pressure 137/88 H 137/88 H 137/88 H O2 Saturation 100 100 98 06/06/18 06/06/18 18:41 20:24 Temperature 36.3 C L 36.2 C L Heart Rate 78 61 Respiratory 14 14 Rate Blood Pressure 126/83 H 127/87 H O2 Saturation 100 100 Oxygen O2 Source Room air - EKG (time done) 1515 Rate: Rate (enter#) (67) Rhythm: NSR [place]: Normal Intervals: Normal OR QRS: Normal Ischemia: Normal ST segments - Labs Labs: Laboratory Tests 06/06/18 06/06/18 06/06/18 15:15 15:15 15:15 WBC 6.1 RBC 4.76 Hgb 12.9 Hct 39.9 MCV 83.9 MCH 27.1 MCHC 32.3 RDW 16.1 H Plt Count 230 MPV 8.1 Neut # (Auto) 3.7 Lymph # (Auto) 1.9 [place] # (Auto) 0.4 Eos # (Auto) 0.1 Baso # (Auto) 0.1 Absolute Nucleated RBC 0.00 Nucleated RBC % 0.1 Sodium 139 Potassium 3.8 Chloride 104 Carbon Dioxide 27 Anion Gap 8.0 BUN 14 Creatinine 0.8 Estimated GFR (MDRD) 84 L Glucose 113 H Calcium 9.0 Total Bilirubin 0.7 AST 39 ALT 27 Alkaline Phosphatase 82 Troponin I < 0.04 Total Protein 7.4 Albumin 3.9 Globulin 3.5 Albumin/Globulin Ratio 1.1 Lipase 31 - Rads (name of study) Right upper quadrant ultrasound Radiology: Prelim report reviewed, EMP read contemporaneously, See rad report (. Assuming the patient still has a gallbladder, it is filled with shadowing stones and the gallbladder wall is thickened. 2. There is an incompletely characterized hypoechoic 1.4 cm low-density lesion in the left hepatic lobe. 3. Hyperechoic appearance of the liver parenchyma, suggesting steatosis. ) PD MEDICAL DECISION MAKING - ED course Complexity details: reviewed results, re-evaluated patient, considered differential, d/w patient, d/w family, d/w devops consultant ED course: 32-year-old female with acute cholecystitis. Discussed the case with Dr. Mckenzie, surgery salon shampoo assistant and will come and evaluate the patient. Pain controlled. Given Zosyn. This document was made in part using voice recognition software. While efforts are made to proofread this document, sound alike and grammatical errors may occur. Departure - Departure Disposition: ED Transfer to [facility] Clinical Impression: Cholecystitis Condition: Stable
[2018-06-06 15:35] LABS: ALBUMIN 3.9 g/dL (3.2-5.5); ALBUMIN/GLOBULIN RATIO 1.1 (1.0-2.2); BILIRUBIN,TOTAL 0.7 mg/dL (0.2-1.0); CREATININE 0.8 mg/dL (0.4-1.0); TOTAL PROTEIN 7.4 g/dL (6.7-8.2)
[2018-06-06] MEDS ORDERED: MAG HYDROX/AL HYDROX/SIMETH 30 ML UDC PO STA (15:38)
[2018-06-06] MEDS ORDERED: SUCRALFATE 1 GM/10 ML UDC PO STA (15:38)
[2018-06-06] MEDS ORDERED: LIDOCAINE VISCOUS 2% 15 ML UDC MM STA (15:38)
[2018-06-06] MEDS ORDERED: FAMOTIDINE 20 MG TABLET PO STA (15:40)
[2018-06-06] MEDS ORDERED: KETOROLAC 30 MG/ML VIAL IVP STA (17:00)
[2018-06-06] MEDS ORDERED: SODIUM CHLORIDE 0.9% 1,000 ML IV ONE (17:45)
[2018-06-06] MEDS ORDERED: ONDANSETRON 4 MG/2 ML VIAL IVP STA (17:46)
[2018-06-06] MEDS ORDERED: PIPERACILLIN/TAZOBACTAM 3.375 GM in SODIUM CHLORIDE 0.9% MINIBAG 100 ML IV STA (17:46)
[2018-06-06] MEDS ORDERED: HYDROmorphone 1 MG/ML CARPUJECT IVP STA (17:46)
--- NOTE | 2018-06-06 18:32 | Ultrasound Report ---
Reason: RUQ abd pain Procedure Date: 06/06/2018 Accession Number: [id number] / [id number] Procedure: US - Abdomen Limited CPT Code: FULL RESULT: EXAM: ABDOMEN ULTRASOUND LIMITED, RUQ EXAM DATE: 06/06/2018 05:42 PM. CLINICAL HISTORY: RUQ abd pain. COMPARISON: None available. TECHNIQUE: Real-time scanning was performed with static images obtained. FINDINGS: Liver: The liver parenchyma appears hyperechoic relative to the right renal cortex. There is a hypoechoic lesion in the left hepatic lobe measuring 1.3 x 1.3 x 1.4 cm. Liver size approximately 15 cm. Main portal vein flow: Hepatopetal. Gallbladder: The gallbladder appears to be filled with shadowing gallstones. The gallbladder wall appears thickened up to 6 mm. Biliary System: CBD measures 5 mm. No intrahepatic or extrahepatic ductal dilatation. Other: No right hydronephrosis. IMPRESSION: 1. Assuming the patient still has a gallbladder, it is filled with shadowing stones and the gallbladder wall is thickened. 2. There is an incompletely characterized hypoechoic 1.4 cm low-density lesion in the left hepatic lobe. 3. Hyperechoic appearance of the liver parenchyma, suggesting steatosis. RADIA
--- NOTE | 2018-06-06 19:52 | ANESTHESIA ---
Pre-Anesthesia VS, & Labs - Diagnosis Cholelithiasis - Procedure Wolof mirna Vital Signs: Temp Pulse Resp BP Pulse Ox 36.3 C L 78 14 126/83 H 100 06/06/18 18:41 06/06/18 18:41 06/06/18 18:41 06/06/18 18:41 06/06/18 18:41 Height 5 ft 2 in Weight (kg) 90.718 kg Body Mass Index 36.6 - NPO Other (1300 pasta and coffee) - Is Patient ?: No - Lab Results Current Lab Results: Laboratory Tests 06/06/18 15:15: Troponin I < 0.04 06/06/18 15:15: Sodium 139, Potassium 3.8, Chloride 104, Carbon Dioxide 27, Anion Gap 8.0, BUN 14, Creatinine 0.8, Estimated GFR (MDRD) 84 L, Glucose 113 H, Calcium 9.0, Total Bilirubin 0.7, AST 39, ALT 27, Alkaline Phosphatase 82, Total Protein 7.4, Albumin 3.9, Globulin 3.5, Albumin/Globulin Ratio 1.1, Lipase 31 06/06/18 15:15: WBC 6.1, RBC 4.76, Hgb 12.9, Hct 39.9, MCV 83.9, MCH 27.1, MCHC 32.3, RDW 16.1 H, Plt Count 230, MPV 8.1, Neut # (Auto) 3.7, Lymph # (Auto) 1.9, Person # (Auto) 0.4, Eos # (Auto) 0.1, Baso # (Auto) 0.1, Absolute Nucleated RBC 0.00, Nucleated RBC % 0.1 Fish Bones: 06/06/18 15:15 06/06/18 15:15 Home Medications and Allergies Active Medications Sodium Chloride (Normal Saline 0.9%) 1,000 mls @ 150 mls/hr IV .[id number] ONE Stop: 06/07/18 00:24 Last Admin: 06/06/18 18:09 Dose: 150 mls/hr No Known Home Medications 04/21/18 Allergies/Adverse Reactions: Allergies Allergy/AdvReac Type Severity Reaction Status Date / Time No Known Drug Allergies Allergy Verified 06/06/18 15:06 Anes History & Medical History - Anesthetic History Anesthesia Complications: reports: No previous complications Family history of Anesthesia Complications: Denies Family history of Malignant Hyperthermia: Denies - Medical History Cardiovascular: reports: None Pulmonary: reports: None Gastrointestinal: reports: None, GERD Urinary: reports: None Neuro: reports: None Musculoskeletal: reports: Chronic back pain Endocrine/Autoimmune: reports: None Blood Disorders: reports: None Skin: reports: None Smoking Status: Never smoker Psychosocial: reports: No issues indicated - Surgical History Gynecologic: Tubal ligation Exam General: Alert, Oriented x3 Dental: WNL Mouth Opening: Greater than 4 Fingerbreadths Neck Mobility: Normal Mallampati classification: II Thyromental Distance: greater than 6 cm Respiratory: Lungs clear Cardiovascular: Regular rate Mental/Cognitive Status: Alert/Oriented X3 Cognitive Status: Within normal limits Plan Anesthesia Type: General Consent for Procedure(s) Verified and Reviewed: Yes Code Status: Attempt Resuscitation ASA classification: 2-Mild systemic disease Is this case an emergency?: Yes
--- NOTE | 2018-06-06 19:55 | CONSULTATION NOTE ---
Referring Provider Name of Referring Provider:: Dr. Tony Jacinto Consult Date: 06/06/18 Chief Complaint - Chief Complaint Chief Complaint: Colicky right upper quadrant pain following fatty food injestion History of Present Illness - Admitted From Admitted From:: Not admitted but operation as outpatient - History Obtained From Records Reviewed: Yes History obtained from: Patient, mother and chart Exam Limitations: None - History of Present Illness HPI Comment/Other: 32 year old female who is 3 weeks out from a tubal ligation ( - 2, 4, 6, and 7 year old children) presents with colicky right upper quadrant pain that initially presented on and reappeared today after pasta and a hot dog. The pain is described as severe and located in the right upper quadrant. Now better but nausea still present. Emesis bag is on the bed. No hematemesis, no melena, no hematochezia. 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 - POLST Patient has POLST: No Meds/Allgy - Home Medications Home Medications: Ambulatory Orders Medication Instructions Recorded Confirmed No Known Home Medications 04/21/18 05/04/18 - Allergies Allergies/Adverse Reactions: Allergies Allergy/AdvReac Type Severity Reaction Status Date / Time No Known Drug Allergies Allergy Verified 06/06/18 15:06 Review of Systems - Constitutional Constitutional: denies: Fatigue, Fever, Chills, Malaise - Eyes Eyes: denies: Pain - Ears, Nose & Throat Ears, Nose & Throat: denies: Ear pain - Cardiovascular Cariovascular: reports: Chest pain (The pain was described as in the upper abdomen and part of the lower chest.). denies: Irregular heart rate, Palpitations - Respiratory Respiratory: denies: Cough, Sputum production, Wheezing - Gastrointestinal Gastrointestinal: reports: Abdominal pain, Nausea. denies: Diarrhea, Rectal bleeding, Black stools, Bloody stools, Bile emesis, Avery blood emesis - Genitourinary Genitourinary: denies: Dysuria - Musculoskeletal Musculoskeletal: denies: Muscle pain - Neurological Neurological: denies: General weakness, Focal weakness - Psychiatric Psychiatric: denies: Depression, Anxiety, Suicidal Exam - Vital Signs Reviewed Vital Signs: Yes Vital Signs: Vital Signs x48h Temp Pulse Resp BP Pulse Ox 06/06/18 18:41 36.3 C L 78 14 126/83 H 100 06/06/18 17:45 36.0 C L 79 18 137/88 H 98 06/06/18 15:06 37.0 C 70 18 137/88 H 100 06/06/18 15:05 37.0 C 70 18 137/88 H 100 - Physical Exam General Appearance: positive: Mild distress (Sitting up in the gurney in room 8 at [facility]'s emergency department looking as though she is going to throw up but she has not.) Eyes Bilateral: positive: No lid inflammation, Conjunctivae nml, No scleral icterus ENT: positive: Dry mucous membranes Neck: positive: Trachea midline Respiratory: positive: Chest non-tender, No respiratory distress, Breath sounds nml Cardiovascular: positive: Regular rate & rhythm Abdomen: positive: Non-tender, Nml bowel sounds, No distention. negative: Guarding, Rebound, Hepatomegaly, Splenomegaly Skin: positive: Color nml Extremities: positive: Non-tender, Nml appearance Neurologic/Psychiatric: positive: Oriented x3, Motor nml, Sensation nml, Mood/affect nml Conclusion/Plan - Diagnosis Diagnosis: Biliary colic, severe - Plan Plan: Laparoscopic cholecystectomy, possible open cholecystectomy, possible intraoperative cholangiogran, possible common bile duct exploration. The indications, procedure, alternatives including no surgery, ingestion of Acti gall, possible risks including infection (deep or superficial), bleeding requiring transfusion (with all of its risks), common bile duct injury requring repair and additional surgery, and were fully explained to the patient and all questions answered. I also explained the pathophysiology. I explained that following the surgery I did not want her lifting anything over 15 pounds for 6 weeks to allow for optimal healing and to decrease the likelihood that a hernia would occur. All questions were fully answered. Verbal and written consent was obtained. The patient, in preparation for surgery will be nothing by mouth, and receive 2 gm of Cephalexin with induction. I asked her to contact me with any surgical questions and her concerns and she stated that she would. I asked her to let me know if there is any way we can make her stay at [facility] more comfortable and she stated that she would let me know. The plan is to do this operation as an outpatient procedure and to discharge her home following the procedure. 45 minutes of [id number] time spent with the patient, the majority of which was spent in discussion, coordination of care, and completion of the requisite paperwork - Lab Results Lab results reviewed: Yes Fish Bones: 06/06/18 15:15 06/06/18 15:15 - Diagnostic Imaging Results Diagnostic Imaging Results: positive: Final report reviewed
[2018-06-06] MEDS ORDERED: BUPIVACAINE 0.5% PF 30 ML VIAL ONE (20:30)
[2018-06-06] MEDS ORDERED: fentaNYL 250 MCG/5 ML VIAL IVP ONE (21:50)
[2018-06-06] MEDS ORDERED: NEOSTIGMINE 1 MG/1 ML 10 ML MDV IVP ONE (21:50)
[2018-06-06] MEDS ORDERED: ACETAMINOPHEN 1,000 MG/100 ML 100 ML IV ONE (21:50)
[2018-06-06] MEDS ORDERED: GLYCOPYRROLATE 1 MG/5 ML VIAL IVP ONE (21:50)
[2018-06-06] MEDS ORDERED: PHENYLEPHRINE 50 MG/5 ML VIAL IV ONE (21:50)
[2018-06-06] MEDS ORDERED: DEXAMETHASONE 4 MG/ML VIAL IVP ONE (21:50)
[2018-06-06] MEDS ORDERED: PROPOFOL 200 MG/20 ML VIAL IVP ONE (21:50)
[2018-06-06] MEDS ORDERED: LIDOCAINE-MPF 2% 5 ML VIAL IM ONE (21:50)
[2018-06-06] MEDS ORDERED: MIDAZOLAM 2 MG/2 ML VIAL IVP ONE (21:50)
[2018-06-06] MEDS ORDERED: ROCURONIUM 50 MG/5 ML VIAL IVP ONE (21:50)
[2018-06-06] MEDS ORDERED: HYDROcod/ACETAM 5/325 MG TABLET PO PRN (21:54)
[2018-06-06] MEDS ORDERED: HYDROmorphone 0.5 MG/0.5 ML SYRINGE IVP PRN (21:54)
[2018-06-06] MEDS ORDERED: ONDANSETRON 4 MG/2 ML VIAL IVP PRN (21:54)
--- NOTE | 2018-06-06 21:58 | OPERATIVE REPORT ---
Operative Report - General Procedure Date: 06/06/18 Planned Procedure: Laparoscopic cholecystectomy, possible open cholecystectomy, possible intraoperative cholangiogram, possible common bile duct exploration Pre-Op Diagnosis: Biliary colic, severe Procedure Performed: Laparoscopic cholecystectomy Post Op Diagnosis: Same - Procedure Note Primary Surgeon: David Mckenzie MD Anesthesia Provider: Martin Garcia CRNA Anesthesia Technique: General ET tube, Local (30 mL of half percent Marcaine) IV Fluids (mL): 700 Estimated Blood Loss (mL): 5 Drain/Tube Type: Other (None.) Complications: None. - Other Other Information/Narrative: OPERATIVE DESCRIPTION/REPORT: After verbal and written informed consent was obtained detailing the risks of infection, bleeding requiring transfusion with its risks, nerve injury, and , as well as the possibility of a colostomy, and after I met with the patient confirming the surgery, the patient was brought to the operative suite and placed supine on the operating table. Great care was taken to avoid pressure points to prevent pressure necrosis or nerve injury. Monitoring devices were applied along with TEDs and pneumatic compressive stockings (to prevent DVT). The patient received preoperative antibiotics for surgical prophylaxis. Martin Garcia CRNA sedated and anesthetized the patient for the entire procedure. The patient was prepped and draped in the usual sterile manner. A "time in" then confirmed that the patient was identified with 3 identifiers (name, date and medical record number), the history and physical was in the chart, the signed consent confirming the procedure was in the chart, the patient was in the correct position, the aforementioned prophylactic measures were in place or given, we had the correct personnel and equipment to complete the procedure and that anesthesia, surgery and nursing were given an opportunity to express any concerns. With the agreement of everyone in the room, we proceeded with the operation. The initial incision was at the umbilicus and dissection to the linea alba was completed using blunt dissection. The linea alba was grasped with a Dimas and incised. In a similar manner the peritoneum was grasped and incised using Metzenbaum scissors. In this location, a 12 mm blunt tipped, balloon tipped port was placed and the balloon was inflated to keep the port in position. The abdominal cavity was insufflated with carbon dioxide to steady-state pressure of 15 mmHg. Three additional 5 mm ports were placed in standard location for laparoscopic cholecystectomy (subxiphoid and 2 right subcostal) under direct vision of the 30 degree laparoscope and without incident. The patient was then placed in reverse Trendelenburg position and was rotated slightly to their left. The gallbladder fundus was grasped with an atraumatic grasper. Multiple adhesions had to be taken down by blunt and sharp dissection along with electrocautery. Eventually, we identified the infundibulum, and this was then grasped and retracted inferior and laterally. Dissection was then begun in the angle of [place]. The cystic duct and (slightly medially and posteriorly) cystic artery were clearly identified. The critical view was obtained. Two clips proximally and one clip distally were used to control both the cystic duct and cystic artery. The clips were carefully placed to avoid occluding the juncture with the common bile duct. Both the cystic duct and then the cystic artery were then transected with laparoscopic agustin. The gallbladder was then removed from its fossa in a retrograde fashion using electrocautery. With the 30 degree 5 mm scope in the subxiphoid position, the gallbladder was placed in an EndoCatch bag to be extracted through the 12 mm port site. I irrigated the right upper quadrant with a liter of warm sterile saline, and the area was aspirated dry. I inspected the gallbladder fossa and there was no bleeding or bile leak. Clips on the cystic duct and cystic artery appeared to be secure. I briefly visually explored the abdomen. There was no other evidence of overt pathology. I injected the port sites at the peritoneal, fascial, and skin levels under direct vision with 0.5% Marcaine. All ports and the EndoCatch containing the gallbladder were removed. Following gallbladder removal, the remaining carbon dioxide was expelled from the abdomen. The fascia at the umbilicus was reapproximated using 2 [id number] 0 Vicryl sutures. The skin at each port site was approximated using a subcuticular 4-0 Monocryl. The surgical count of instruments, needles and sponges was reported as correct twice. Mastisol, Steri-Strips and sterile surgical dressings were applied. The patient was then awakened from anesthesia, extubated, and having tolerated the procedure well, was transported to the recovery room. No complications were encountered. A "time out" confirmed the operation performed, the fluids given, the estimated blood loss and anesthesia, surgery and nursing were given an opportunity to express any concerns. Draghank disclaimer: This document was created in part using voice recognition technology. Because of the inherent limitations of the system ([employer]'s [employer] user manual states that the licensee understands that speech recognition is a statistical process and that recognition errors are inherent in the process), occasional same sounding word substitutions and grammatical errors do occur and persist despite proofreading. Please read this document for context.
[2018-06-06] MEDS ORDERED: HYDROmorphone 0.5 MG/0.5 ML SYRINGE ONE (22:24)
[2018-06-06] MEDS ORDERED: HYDROcod/ACET 5/325 Prepack 4 PO STA (22:26)
[2018-06-06] MEDS ORDERED: HYDROcod/ACET 5/325 Prepack 4 PO ONE (22:39)
[2018-06-07 00:43] VITALS: BP 142/90
== END 2018-06-07 00:54 | disposition home or self-care (01) ==
LOC: ED 15:01 → SDS 19:30 → ED 20:35 → MS2 22:46 → SDS 06-07 00:54
PROVIDERS: ATTEND Surgery
PROC: 0FT44ZZ Resection of Gallbladder, Percutaneous Endoscopic Approach (ICD-10-PCS; principal; 2018-06-06)
DX: K80.20 Calculus of gallbladder without cholecystitis without obstruction (principal); K21.9 Gastro-esophageal reflux disease without esophagitis
CPT/HCPCS: 36415; 47562; 76705; 80053; 83690; 84484; 85025; 93005; 96365; 96375; 99283; 99284; A9270; J0131; J1170; J3010

== ENCOUNTER 2018-06-11 10:05 | Emergency (ER) | payer MEDICAID ==
[2018-06-11 10:36] LABS: BASOPHILS # (AUTO) 0.1 10^3/uL (0.0-0.1); EOSINOPHILS # (AUTO) 0.1 10^3/uL (0.0-0.7); EOSINOPHILS % (AUTO) 1.7 %; HGB - HEMOGLOBIN 13.4 g/dL (12.0-16.0); LYMPHOCYTES # (AUTO) 1.5 10^3/uL (1.5-3.5); LYMPHOCYTES % (AUTO) 27.1 %; MEAN CORPUSCULAR HEMOGLOBIN 27.1 pg (27.0-31.0); MEAN CORPUSCULAR HGB CONC 32.3 g/dL (32.0-36.0); MEAN CORPUSCULAR VOLUME 83.8 fL (81.0-99.0); MEAN PLATELET VOLUME 8.4 fL (7.9-10.8); MONOCYTES # (AUTO) 0.4 10^3/uL (0.0-1.0); MONOCYTES % (AUTO) 7.6 %; NEUTROPHILS # (AUTO) 3.4 10^3/uL (1.5-6.6); NEUTROPHILS % (AUTO) 62.6 %; PLT - PLATELET COUNT 242 10^3/uL (130-450); RED BLOOD COUNT 4.94 10^6/uL (4.20-5.40); WHITE BLOOD COUNT 5.5 x10^3/uL (4.8-10.8)
[2018-06-11 10:49] LABS: ALBUMIN 3.9 g/dL (3.2-5.5); ALBUMIN/GLOBULIN RATIO 1.1 (1.0-2.2); BILIRUBIN,TOTAL 1.3 mg/dL (0.2-1.0); CREATININE 0.7 mg/dL (0.4-1.0); TOTAL PROTEIN 7.6 g/dL (6.7-8.2)
--- NOTE | 2018-06-11 11:01 | ED Physician Documentation ---
History of Present Illness - Stated complaint Stated Complaint: SOA/IRRITATED SKIN - Chief complaint Chief Complaint: Abd Pain - History obtained from History obtained from: Patient - History of Present Illness Timing: Last night Pain level max: 1 Pain level now: 1 - Additonal information Additional information: 32-year-old female presents to the emergency department 2 days status post a laparoscopic cholecystectomy. She states she started having generalized itching without a rash yesterday. Noticed that she was having a hard time breathing last night. Feels like she just cannot "catch her breath".She has some chest pressure on the right side. Nothing makes it better or worse. 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 - Present Medications Home Medications: Ambulatory Orders Medication Instructions Recorded Confirmed HYDROcod/ACETAM 5/325 [[place] 5/325] 1 - 2 ea PO Q6H PRN 06/11/18 06/11/18 Ibuprofen 200 mg PO PRN PRN MDD pain 06/11/18 06/11/18 - Allergies Allergies/Adverse Reactions: Allergies Allergy/AdvReac Type Severity Reaction Status Date / Time No Known Drug Allergies Allergy Verified 06/11/18 10:14 - Social History Does the pt smoke?: No Smoking Status: Never smoker Does the pt drink ETOH?: Yes Does the pt have substance abuse?: No - Immunizations Immunizations are current?: Yes - POLST Patient has POLST: No PD ED PE NORMAL - Vitals Vital signs reviewed: Yes - General General: Alert and oriented X 3, No acute distress, Well developed/nourished - HEENT HEENT: PERRL, Moist mucous membranes - Neck Neck: Supple, no meningeal sign - Cardiac Cardiac: RRR, Strong equal pulses - Respiratory Respiratory: No respiratory distress, Clear bilaterally - Abdomen Abdomen: Soft, Non tender, Non distended, Other (Incisions are clean dry and intact without signs of infection) - Back Back: No CVA TTP, No spinal TTP - Derm Derm: Warm and dry - Extremities Extremities: No edema, No calf tenderness / cord - Neuro Neuro: Alert and oriented X 3 - Psych Psych: Normal mood, Normal affect Results - Vitals Vitals: Vital Signs - 24 hr 06/11/18 06/11/18 06/11/18 10:11 13:33 15:30 Temperature 35.4 C L 36.1 C L Heart Rate 84 73 71 Respiratory 16 14 16 Rate Blood Pressure 130/81 H 120/87 H 129/87 H O2 Saturation 100 100 100 Oxygen O2 Source Room air - EKG (time done) 1151 Rate: Rate (enter#) (65) Rhythm: NSR [place]: Normal Intervals: Normal [place] QRS: Normal Ischemia: Normal ST segments Computer interpretation: Agree with computer - Labs Labs: Laboratory Tests 06/11/18 06/11/18 10:25 10:25 WBC 5.5 RBC 4.94 Hgb 13.4 Hct 41.4 MCV 83.8 MCH 27.1 MCHC 32.3 RDW 16.0 H Plt Count 242 MPV 8.4 Neut # (Auto) 3.4 Lymph # (Auto) 1.5 [place] # (Auto) 0.4 Eos # (Auto) 0.1 Baso # (Auto) 0.1 Absolute Nucleated RBC 0.00 Nucleated RBC % 0.0 Sodium 138 Potassium 3.9 Chloride 102 Carbon Dioxide 26 Anion Gap 10.0 BUN 10 Creatinine 0.7 Estimated GFR (MDRD) 98 Glucose 112 H Calcium 9.0 Total Bilirubin 1.3 H AST 60 H ALT 324 H Alkaline Phosphatase 277 H Total Protein 7.6 Albumin 3.9 Globulin 3.7 Albumin/Globulin Ratio 1.1 Lipase 26 - Rads (name of study) CT abdomen pelvis Radiology: Prelim report reviewed, EMP read contemporaneously, See rad report (Postoperative changes as described. ) Chest x-ray Radiology: Prelim report reviewed, EMP read contemporaneously, See rad report (No acute disease) PD MEDICAL DECISION MAKING - ED course Complexity details: reviewed results, re-evaluated patient, considered differential, d/w patient, d/w commercial sales consultant ED course: 32-year-old female presents to the emergency department with dyspnea and itching. Bilirubin is mildly elevated. .Her LFTs are also mildly elevated. Discussed the case with her surgeon, Dr. Mckenzie who recommends CT abdomen pelvis. This does not show any acute abnormalities. There was significant delay in getting the CT read by radiology. Patient's pain improved in the emergency department and she feels much better. No evidence of DVT clinically or PE clinically. Stable vital signs. The visualized portions of the pulmonary arteries appear normal and without massive PE on CT scan. We will have her follow-up with Dr. Mckenzie early next week for further care. Patient counseled regarding signs and symptoms for which I believe and urgent re-evaluation would be necessary. Patient with good understanding of and agreement to plan and is comfortable going home at this time This document was made in part using voice recognition software. While efforts are made to proofread this document, sound alike and grammatical errors may occur. Departure - Departure Disposition: 01 Home, Self Care Clinical Impression: Postoperative abdominal pain, Cholestatic pruritus Dyspnea Qualifiers: Dyspnea type: unspecified Qualified Code(s): R06.00 - Dyspnea, unspecified Condition: Good Instructions: ED Post Op Pain Follow-Up: David Mckenzie MD [Provider Admit Priv/Credential] - Within 1 week Comments: Continue your medications at home. Return if you worsen. Follow-up with Dr. Mckenzie early next week. Discharge Date/Time: 06/11/18 16:27
--- NOTE | 2018-06-11 11:27 | XRAY Report ---
Reason: dyspnea Procedure Date: 06/11/2018 Accession Number: [id number] / [id number] Procedure: XR - Chest 1 View X-Ray CPT Code: 66672 FULL RESULT: EXAM: CHEST RADIOGRAPHY EXAM DATE: 06/11/2018 11:02 AM. CLINICAL HISTORY: Dyspnea. COMPARISON: None. TECHNIQUE: 1 view. FINDINGS: Lungs/Pleura: No focal opacities evident. No pleural effusion. No pneumothorax. Mediastinum: Within exam limitations, the cardiomediastinal contour is normal. Other: None. IMPRESSION: Normal single view chest. RADIA
[2018-06-11] MEDS ORDERED: IOVERSOL 320 100 ML VIAL IVP ONE (12:33)
[2018-06-11] MEDS ORDERED: oxyCODONE 5 MG TABLET PO STA (15:10)
[2018-06-11] MEDS ORDERED: diphenhydrAMINE INJ 50 MG/ML VIAL IVP STA (15:11)
[2018-06-11 15:48] VITALS: BP 129/87
--- NOTE | 2018-06-11 16:29 | CT Report ---
Reason: elevated LFTs s/p cholecystectomy Procedure Date: 06/11/2018 Accession Number: [id number] / [id number] Procedure: CT - Abdomen/Pelvis W CPT Code: FULL RESULT: EXAM: Abdomen/Pelvis W DATE: 06/11/2018 12:20 PM CLINICAL HISTORY: elevated LFTs s/p cholecystectomy COMPARISON: None. TECHNIQUE: Routine helical CT imaging was performed through the abdomen and pelvis. IV contrast: 100 mL of Optiray 320. Enteric contrast: No Reconstructions: Coronal and sagittal. In accordance with CT protocol optimization, one or more of the following dose reduction techniques were utilized for this exam: automated exposure control, adjustment of mA and/or KV based on patient size, or use of iterative reconstructive technique. FINDINGS: The patient is status post cholecystectomy with surgical clips and phlegmonous changes in the cholecystectomy bed and mild intra and extra hepatic biliary ductal dilation which can be normal in the immediate postoperative and in the long-term respectively. Simple free fluid is seen in the pelvis. The liver, spleen, adrenal glands, bilateral kidneys and pancreas are unremarkable. CT appearance of the uterus is unremarkable. There is no bowel obstruction, free air or lymphadenopathy. There are no aggressive osseous lesions. IMPRESSION: Postoperative changes as described. RADIA
== END 2018-06-11 16:27 | disposition home or self-care (01) ==
LOC: ED 10:05
DX: G89.18 Other acute postprocedural pain (principal); L29.8 Other pruritus; R06.00 Dyspnea, unspecified
CPT/HCPCS: 36415; 71045; 74177; 80053; 83690; 85025; 93005; 96374; 99283; 99284; A9270; J1200

== ENCOUNTER 2018-06-17 10:26 | Outpatient (CLI) | payer MEDICAID ==
[2018-06-17 10:40] LABS: BASOPHILS # (AUTO) 0.1 10^3/uL (0.0-0.1); BASOPHILS % (AUTO) 0.9 %; EOSINOPHILS # (AUTO) 0.2 10^3/uL (0.0-0.7); EOSINOPHILS % (AUTO) 1.8 %; HGB - HEMOGLOBIN 12.9 g/dL (12.0-16.0); LYMPHOCYTES % (AUTO) 11.3 %; MEAN CORPUSCULAR HGB CONC 32.7 g/dL (32.0-36.0); MEAN CORPUSCULAR VOLUME 85.5 fL (81.0-99.0); MEAN PLATELET VOLUME 7.4 fL (7.9-10.8); MONOCYTES # (AUTO) 0.6 10^3/uL (0.0-1.0); MONOCYTES % (AUTO) 6.5 %; NEUTROPHILS # (AUTO) 7.3 10^3/uL (1.5-6.6); NEUTROPHILS % (AUTO) 79.5 %; PLT - PLATELET COUNT 283 10^3/uL (130-450); RED BLOOD COUNT 4.62 10^6/uL (4.20-5.40); WHITE BLOOD COUNT 9.2 x10^3/uL (4.8-10.8)
[2018-06-17 10:57] LABS: ALBUMIN 3.4 g/dL (3.2-5.5); ALBUMIN/GLOBULIN RATIO 0.8 (1.0-2.2); BILIRUBIN,TOTAL 1.9 mg/dL (0.2-1.0); CALCIUM 8.9 mg/dL (8.5-10.3); CREATININE 0.6 mg/dL (0.4-1.0); TOTAL PROTEIN 7.7 g/dL (6.7-8.2)
== END 2018-06-17 10:27 | disposition home or self-care (01) ==
LOC: LAB 10:26
PROVIDERS: ATTEND Surgery
DX: R10.12 Left upper quadrant pain (principal); Z90.49 Acquired absence of other specified parts of digestive tract
CPT/HCPCS: 36415; 80053; 85025

== ENCOUNTER 2018-06-18 11:00 | Emergency (ER) | payer MEDICAID ==
--- NOTE | 2018-06-18 11:56 | ED Physician Documentation ---
PD HPI ABD PAIN - Stated complaint Stated Complaint: POST SURGICAL COMPLICATIONS - Chief complaint Chief Complaint: Abd Pain - History obtained from History obtained from: Patient - History of Present Illness Timing - onset: How many weeks ago (1) Timing - details: Still present Quality: Pain Location: LUQ Radiation: Left shoulder Worsened by: Eating, Breathing Associated symptoms: Nausea, Vomiting. No: Fever Similar symptoms before: Has not had sx before Recently seen: Surgery (Lap mirna 10 days ago.) - Additional information Additional information: The patient is a 32-year-old female who is 10 days status post lap mirna, who presents with left upper quadrant abdominal pain, radiating to her left shoulder. The pain is worse with inspiration. She reports associated nausea with occasional vomiting, particularly after eating. She denies fever or cough. She was seen by surgeon yesterday and had blood work which revealed elevated liver enzymes with alkaline phosphatase 499, total bilirubin 1.9, AST 82, and ALT 151. White blood cell count was normal at 9.2. Review of Systems Constitutional: denies: Fever Nose: denies: Congestion Throat: denies: Sore throat Cardiac: denies: Chest pain / pressure Respiratory: denies: Dyspnea, Cough GI: reports: Abdominal Pain, Nausea, Vomiting (occasional) : denies: Dysuria Skin: denies: Rash Musculoskeletal: denies: Back pain Neurologic: denies: Focal weakness, Numbness, Syncope, Headache PD PAST MEDICAL HISTORY - Past Medical History Cardiovascular: None Respiratory: None Neuro: None Endocrine/Autoimmune: None GI: GERD : None HEENT: None Psych: Anxiety, Panic attacks Musculoskeletal: Chronic back pain Derm: None - Past Surgical History Past Surgical History: Yes 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 - Present Medications Home Medications: Ambulatory Orders Medication Instructions Recorded Confirmed HYDROcod/ACETAM 5/325 [[place] 5/325] 1 - 2 ea PO Q6H PRN 06/11/18 06/11/18 Ibuprofen 200 mg PO PRN PRN MDD pain 06/11/18 06/11/18 - Allergies Allergies/Adverse Reactions: Allergies Allergy/AdvReac Type Severity Reaction Status Date / Time No Known Drug Allergies Allergy Verified 06/18/18 11:17 - Social History Does the pt smoke?: No Smoking Status: Never smoker Does the pt drink ETOH?: Yes Does the pt have substance abuse?: No - Immunizations Immunizations are current?: Yes - POLST Patient has POLST: No PD ED PE NORMAL - Vitals Vital signs reviewed: Yes (normal) - General General: Alert and oriented X 3, Other (obese) - HEENT HEENT: Atraumatic, Moist mucous membranes, Pharynx benign - Neck Neck: No adenopathy - Cardiac Cardiac: RRR - Respiratory Respiratory: No respiratory distress, Clear bilaterally - Abdomen Abdomen: Normal bowel sounds, Soft, Other (Mild diffuse tenderness to palpation, without rebound.) - Back Back: No CVA TTP - Derm Derm: No rash - Extremities Extremities: No edema, No calf tenderness / cord - Neuro Neuro: Alert and oriented X 3, No motor deficit, Normal speech Results - Vitals Vitals: Vital Signs - 24 hr 06/18/18 06/18/18 11:04 17:17 Temperature 36.5 C Heart Rate 83 74 Respiratory 20 12 Rate Blood Pressure 136/86 H 128/82 H O2 Saturation 100 100 Oxygen O2 Source Room air - Labs Labs: Laboratory Tests 06/18/18 06/18/18 12:16 12:16 WBC 9.4 RBC 4.84 Hgb 13.4 Hct 40.6 MCV 83.8 MCH 27.8 MCHC 33.1 RDW 14.9 Plt Count 315 MPV 7.3 L Neut # (Auto) 7.9 H Lymph # (Auto) 0.7 L [place] # (Auto) 0.5 Eos # (Auto) 0.2 Baso # (Auto) 0.1 Absolute Nucleated RBC 0.00 Nucleated RBC % 0.0 Sodium 137 Potassium 3.8 Chloride 99 L Carbon Dioxide 25 Anion Gap 13.0 BUN 13 Creatinine 0.6 Estimated GFR (MDRD) 117 Glucose 91 Calcium 8.9 Total Bilirubin 2.4 H AST 113 H ALT 184 H Alkaline Phosphatase 578 H Total Protein 8.1 Albumin 3.5 Globulin 4.6 H Albumin/Globulin Ratio 0.8 L Lipase 31 - Rads (name of study) CT abd/pelvis Radiology: Prelim report reviewed, EMP read contemporaneously, See rad report (1) Status post cholecystectomy. No evidence of biliary dilatation. 2) Significant interval increase in perihepatic and dependent pelvic fluid. Consider bile leak which could be confirmed with a nuclear medicine biliary tract scan. 3) Small presumed benign left ovarian functional cyst.) PD MEDICAL DECISION MAKING - ED course Complexity details: reviewed old records, reviewed results, re-evaluated patient, considered differential, d/w patient, d/w family, d/w building energy consultant ED course: The patient's presentation is most consistent with biliary leak 10 days status post laparoscopic cholecystectomy. CT scan today reveals moderate perihepatic and dependent pelvic fluid collection, which is significantly increased from previous CT scan. There is no evidence of abscess, and her white blood cell count is normal at 9.4. Her liver enzymes are elevated today compared to yesterday, with total bilirubin today of 2.4 compared to 1.9 yesterday. Her alk phos is 578 today compared to 499 yesterday. AST and ALT are 113 and 184 today compared to 82 and 151 yesterday. Lipase is normal at 31. Treatment in the emergency department included administration of normal saline IV, fentanyl 50 mcg IV x2, Zofran 4 mg IV, and subsequently Dilaudid 1 mg IV. I discussed her condition with Dr. Davies, who advises transfer where she can undergo interventional radiology procedure for drain placement. I discussed her condition with Dr. Dumont at [facility]. He subsequently spoke with Dr. Davies, and accepts the patient in transfer. Transfer forms were completed. Departure - Departure Disposition: 02 Transfer Acute Care Hosp Clinical Impression: Bile leak, postoperative, S/P laparoscopic cholecystectomy Condition: Stable
[2018-06-18] MEDS ORDERED: IOVERSOL 320 100 ML VIAL IVP ONE ×2 (12:12→12:39)
[2018-06-18 12:28] LABS: BASOPHILS # (AUTO) 0.1 10^3/uL (0.0-0.1); EOSINOPHILS # (AUTO) 0.2 10^3/uL (0.0-0.7); EOSINOPHILS % (AUTO) 1.8 %; HGB - HEMOGLOBIN 13.4 g/dL (12.0-16.0); LYMPHOCYTES # (AUTO) 0.7 10^3/uL (1.5-3.5); LYMPHOCYTES % (AUTO) 7.8 %; MEAN CORPUSCULAR HEMOGLOBIN 27.8 pg (27.0-31.0); MEAN CORPUSCULAR HGB CONC 33.1 g/dL (32.0-36.0); MEAN CORPUSCULAR VOLUME 83.8 fL (81.0-99.0); MEAN PLATELET VOLUME 7.3 fL (7.9-10.8); MONOCYTES # (AUTO) 0.5 10^3/uL (0.0-1.0); MONOCYTES % (AUTO) 5.3 %; NEUTROPHILS # (AUTO) 7.9 10^3/uL (1.5-6.6); NEUTROPHILS % (AUTO) 84.1 %; PLT - PLATELET COUNT 315 10^3/uL (130-450); RED BLOOD COUNT 4.84 10^6/uL (4.20-5.40); RED CELL DISTRIBUTION WIDTH 14.9 % (12.0-15.0); WHITE BLOOD COUNT 9.4 x10^3/uL (4.8-10.8)
[2018-06-18 12:48] LABS: ALBUMIN 3.5 g/dL (3.2-5.5); ALBUMIN/GLOBULIN RATIO 0.8 (1.0-2.2); BILIRUBIN,TOTAL 2.4 mg/dL (0.2-1.0); CALCIUM 8.9 mg/dL (8.5-10.3); CREATININE 0.6 mg/dL (0.4-1.0); TOTAL PROTEIN 8.1 g/dL (6.7-8.2)
--- NOTE | 2018-06-18 13:04 | CT Report ---
Reason: LUQ pain. 10 days S/P Lap Mila Procedure Date: 06/18/2018 Accession Number: [id number] / [id number] Procedure: CT - Abdomen/Pelvis W CPT Code: FULL RESULT: EXAM: CT ABDOMEN AND PELVIS EXAM DATE: 06/18/2018 12:31 PM. CLINICAL HISTORY: Left upper quadrant pain. 10 days status post laparoscopic cholecystectomy. COMPARISONS: ABDOMEN/PELVIS W/ 06/11/2018 12:18 PM. TECHNIQUE: Routine helical CT imaging was performed through the abdomen and pelvis. IV contrast: OPTI 320 100mL. Enteric contrast: No. Reconstructions: Coronal and sagittal. In accordance with CT protocol optimization, one or more of the following dose reduction techniques were utilized for this exam: automated exposure control, adjustment of mA and/or KV based on patient size, or use of iterative reconstructive technique. FINDINGS: Lung Bases: Unremarkable. Liver: No focal mass. Interval increase in perihepatic fluid. Gallbladder/Bile Ducts: Status post cholecystectomy. No evidence of biliary dilatation. Spleen: Normal. Pancreas: Normal. Adrenal Glands: Normal. Kidneys: Normal. No masses or hydronephrosis. Peritoneal Cavity/Bowel: Interval increase in peritoneal fluid particularly in the dependent pelvis. The volume of fluid is now moderate. Pelvic Organs: The bladder and uterus are unremarkable. There is a 26 mm maximal diameter left adnexal cystic mass most likely a left ovarian functional cyst. Vasculature: No aneurysms or other significant abnormality. Bones: No significant abnormality. Other: None. IMPRESSION: 1. Status post cholecystectomy. No evidence of biliary dilatation. 2. Significant interval increase in perihepatic and dependent pelvic fluid. Consider bile leak which could be confirmed with a nuclear medicine biliary tract scan. 3. Small presumed benign left ovarian functional cyst. RADIA
[2018-06-18] MEDS ORDERED: fentaNYL 100 MCG/2 ML VIAL IVP STA ×2 (14:14→15:14)
[2018-06-18] MEDS ORDERED: ONDANSETRON 4 MG/2 ML VIAL IVP STA (14:14)
[2018-06-18] MEDS ORDERED: SODIUM CHLORIDE 0.9% 1,000 ML IV ONE ×2 (14:14→18:33)
[2018-06-18] MEDS ORDERED: fentaNYL 100 MCG/2 ML VIAL ONE ×2 (14:25→15:43)
[2018-06-18] MEDS ORDERED: ONDANSETRON 4 MG/2 ML VIAL ONE (14:26)
[2018-06-18] MEDS ORDERED: HYDROmorphone 1 MG/ML CARPUJECT IVP STA ×2 (16:37→19:21)
[2018-06-18] MEDS ORDERED: HYDROmorphone 1 MG/ML CARPUJECT ONE (17:03)
[2018-06-18 19:32] VITALS: BP 137/87
== END 2018-06-18 19:33 | disposition short-term general hospital (02) ==
LOC: ED 11:00
DX: K91.89 Other postprocedural complications and disorders of digestive system (principal); R94.5 Abnormal results of liver function studies; R74.8 Abnormal levels of other serum enzymes; K83.8 Other specified diseases of biliary tract
CPT/HCPCS: 36415; 74177; 80053; 83690; 85025; 96361; 96374; 96375; 99284; J1170; Q9967

== ENCOUNTER 2018-06-18 19:35 | Outpatient (CLI) | payer MEDICAID | END 2018-06-18 19:36 | disposition short-term general hospital (02) | LOC: EMS 19:35 | PROVIDERS: ATTEND Surgery | DX: K91.89 Other postprocedural complications and disorders of digestive system (principal) | CPT/HCPCS: A0425; A0426; A0999 ==

== ENCOUNTER 2019-09-13 09:30 | Outpatient (CLI) | payer OTHER | END 2019-09-13 23:59 | disposition home or self-care (01) | LOC: COV 09:30 | PROVIDERS: ATTEND Family Medicine | DX: J02.9 Acute pharyngitis, unspecified (principal); R09.81 Nasal congestion; Z20.828 Contact with and (suspected) exposure to other viral communicable diseases ==

== ENCOUNTER 2021-01-26 19:20 | Emergency (ER) | payer SELFPAY ==
[2021-01-26] MEDS ORDERED: SODIUM CHLORIDE 0.9% 1,000 ML IV STA (19:36)
[2021-01-26] MEDS ORDERED: PROCHLORPERAZINE 10 MG/2 ML VIAL IVP STA (19:36)
--- NOTE | 2021-01-26 19:52 | ED Physician Documentation ---
History of Present Illness - Stated complaint Stated Complaint: CP/HEADACHE - Chief complaint Chief Complaint: Cardiac - Additonal information Additional information: 35-year-old female presents emergency department for evaluation of chest pain, headache nausea and dizziness. She reports that for the last 2 to 3 days she has been feeling some nausea and mild headache. She describes it as left frontal. This follows having some sinus pressure and congestion over the last week. She is tried TheraFlu and Excedrin without full relief of symptoms. There have been no fevers. No syncope. Today she began to notice that she had substernal chest pain that did not radiate. It was not exertional. No falls or trauma. It is reproducible with palpation. Patient reports this provider that she is quite anxious and thinks that she may have worked herself up. No history of DVT or cancer. No hormone use. No recent surgery immobilization. No travel. No unilateral leg swelling. Denies dysuria urgency or frequency. No tobacco use. No personal history of hypertension or diabetes Review of Systems Constitutional: denies: Fever, Chills Eyes: denies: Loss of vision, Decreased vision Ears: reports: Reviewed and negative Nose: reports: Congestion Throat: reports: Reviewed and negative Cardiac: reports: Chest pain / pressure. denies: Palpitations, Pedal edema, Calf pain Respiratory: denies: Dyspnea, Cough, Hemoptysis, Wheezing GI: reports: Nausea. 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 - Present Medications Home Medications: Ambulatory Orders Medication Instructions Recorded Confirmed HYDROcod/ACETAM 5/325 [[place] 5/325] 1 - 2 ea PO Q6H PRN 06/11/18 06/11/18 Ibuprofen 200 mg PO PRN PRN MDD pain 06/11/18 06/11/18 - Allergies Allergies/Adverse Reactions: Allergies Allergy/AdvReac Type Severity Reaction Status Date / Time No Known Drug Allergies Allergy Verified 01/26/21 19:34 - Social History Does the pt smoke?: No Smoking Status: Never smoker Does the pt drink ETOH?: Yes Does the pt have substance abuse?: No - Immunizations Immunizations are current?: Yes - POLST Patient has POLST: No PD ED PE NORMAL - General General: Alert and oriented X 3, No acute distress, Well developed/nourished - HEENT HEENT: Atraumatic, Ears normal, Moist mucous membranes, Pharynx benign - Neck Neck: Supple, no meningeal sign, No adenopathy - Cardiac Cardiac: RRR, No murmur, No gallop, Strong equal pulses - Respiratory Respiratory: No respiratory distress, Clear bilaterally - Abdomen Abdomen: Normal bowel sounds, Soft, Non tender - Back Back: No CVA TTP, No spinal TTP - Derm Derm: Normal color, Warm and dry, No rash - Extremities Extremities: No deformity - Neuro Neuro: Alert and oriented X 3 Eye Opening: Spontaneous Motor: Obeys Commands Verbal: Oriented GCS Score: 15 Results - Vitals Vitals: Vital Signs - 24 hr 01/26/21 01/26/21 19:30 19:42 Temperature 36.7 C Heart Rate 95 95 Respiratory 18 27 H Rate Blood Pressure 134/73 H 150/91 H O2 Saturation 98 100 Oxygen O2 Source Room air - EKG (time done) 1929 Rate: Rate (enter#) (100) Rhythm: NSR [place]: Normal Intervals: Normal [place] QRS: Normal Ischemia: Normal ST segments Compare to prior EKG: Old EKG unavailable Computer interpretation: Agree with computer - Labs Labs: Laboratory Tests 01/26/21 01/26/21 01/26/21 19:49 19:50 19:50 WBC 4.5 L RBC 4.69 Hgb 14.1 Hct 41.9 MCV 89.3 MCH 30.1 MCHC 33.7 RDW 12.4 Plt Count 207 MPV 9.9 Neut # (Auto) 2.2 Lymph # (Auto) 1.9 [place] # (Auto) 0.3 Eos # (Auto) 0.1 Baso # (Auto) 0.0 Absolute Nucleated RBC 0.00 Nucleated RBC % 0.0 Sodium 140 Potassium 3.3 L Chloride 104 Carbon Dioxide 25 Anion Gap 11.0 BUN 12 Creatinine 0.8 Estimated GFR (MDRD) 82 L Glucose 102 H Calcium 9.1 Total Bilirubin 0.7 AST 35 ALT 66 H Alkaline Phosphatase 75 Troponin I High Sens Total Protein 7.9 Albumin 3.9 Globulin 4.0 Albumin/Globulin Ratio 1.0 Lipase 29 Urine Color YELLOW Urine Clarity CLEAR Urine pH 6.0 Ur Specific [place] 1.025 Urine Protein NEGATIVE Urine Glucose (UA) NEGATIVE Urine Ketones TRACE Urine Occult Blood NEGATIVE Urine Nitrite NEGATIVE Urine Bilirubin NEGATIVE Urine Urobilinogen 0.2 (NORMAL) Ur Leukocyte Esterase NEGATIVE Ur Microscopic Review NOT INDICATED Urine Culture Comments NOT INDICATED Urine HCG, Qual NEGATIVE 01/26/21 19:50 WBC RBC Hgb Hct MCV MCH MCHC RDW Plt Count MPV Neut # (Auto) Lymph # (Auto) [place] # (Auto) Eos # (Auto) Baso # (Auto) Absolute Nucleated RBC Nucleated RBC % Sodium Potassium Chloride Carbon Dioxide Anion Gap BUN Creatinine Estimated GFR (MDRD) Glucose Calcium Total Bilirubin AST ALT Alkaline Phosphatase Troponin I High Sens 2.7 Total Protein Albumin Globulin Albumin/Globulin Ratio Lipase Urine Color Urine Clarity Urine pH Ur Specific [place] Urine Protein Urine Glucose (UA) Urine Ketones Urine Occult Blood Urine Nitrite Urine Bilirubin Urine Urobilinogen Ur Leukocyte Esterase Ur Microscopic Review Urine Culture Comments Urine HCG, Qual PD MEDICAL DECISION MAKING - ED course Complexity details: reviewed results, re-evaluated patient, considered differential, d/w patient ED course: 35 year old female presents tot he ED with 3 days of nausea and headache. Initially began as sinus congestion. no fevers. not sudden onset. some relief with excedrin. However this evening she began to have substernal chest pain t hat did nto radiate, therefore she presents here - screening EKG non ischemic. High sensitivity trop negative. CP is reproducible. ? costochondritis. - screening labs, ekg without worrisome findings - pt is PERC negative; doubt PE - pt given 1 liter IVF, compazine and benadryl with moderate relief of headache. I suspect sinus headache. recommend saline nasal rinses followed by flonase - emergent return precautions discussed Departure - Departure Disposition: 01 Home, Self Care Clinical Impression: Headache Qualifiers: Headache type: other headache syndrome Qualified Code(s): G44.89 - Other headache syndrome Chest pain Qualifiers: Chest pain type: intercostal pain Qualified Code(s): R07.82 - Intercostal pain Condition: Stable Record reviewed to determine appropriate education?: Yes Instructions: ED Strain Chest Wall Comments: Liliam you are seen in the emergency department today for nausea and chest pain. As we discussed I think the cause of your headache and nausea is a sinus headache from congestion. I recommend that you do saline nasal rinses in the shower and use Flonase nasal spray when out of the shower. Your screening labs and EKG are all essentially unremarkable. You are not having a heart attack. Your chest hurts when we press on it and this makes it most likely inflammation of the ribs. I do recommend that you take Tylenol or ibuprofen. It is important that you always discuss chest pain with your primary care provider. If you develop fevers, have uncontrolled vomiting, any fainting episodes, or if you feel severely short of breath then please return immediately to the ER for a second evaluation
[2021-01-26 19:54] LABS: BILIRUBIN,URINE NEGATIVE (NEGATIVE); GLUCOSE, URINE (UA) NEGATIVE (NEGATIVE); KETONES,URINE (UA) TRACE mg/dL (NEGATIVE); LEUKOCYTE ESTERASE, URINE NEGATIVE (NEGATIVE); NITRITE,URINE NEGATIVE (NEGATIVE); OCCULT BLOOD,URINE NEGATIVE (NEGATIVE); PROTEIN,URINE NEGATIVE (NEGATIVE); UROBILINOGEN,URINE 0.2 (NORMAL) E.U./dL (NORMAL)
[2021-01-26 20:00] LABS: BASOPHILS % (AUTO) 0.9 %; EOSINOPHILS # (AUTO) 0.1 10^3/uL (0.0-0.7); EOSINOPHILS % (AUTO) 1.3 %; HCT - HEMATOCRIT 41.9 % (37.0-47.0); HGB - HEMOGLOBIN 14.1 g/dL (12.0-16.0); LYMPHOCYTES # (AUTO) 1.9 10^3/uL (1.5-3.5); LYMPHOCYTES % (AUTO) 40.8 %; MEAN CORPUSCULAR HEMOGLOBIN 30.1 pg (27.0-31.0); MEAN CORPUSCULAR HGB CONC 33.7 g/dL (32.0-36.0); MEAN CORPUSCULAR VOLUME 89.3 fL (81.0-99.0); MEAN PLATELET VOLUME 9.9 fL (7.9-10.8); MONOCYTES # (AUTO) 0.3 10^3/uL (0.0-1.0); MONOCYTES % (AUTO) 7.5 %; NEUTROPHILS # (AUTO) 2.2 10^3/uL (1.5-6.6); NEUTROPHILS % (AUTO) 49.5 %; PLT - PLATELET COUNT 207 10^3/uL (130-450); RED BLOOD COUNT 4.69 10^6/uL (4.20-5.40); RED CELL DISTRIBUTION WIDTH 12.4 % (12.0-15.0); WHITE BLOOD COUNT 4.5 x10^3/uL (4.8-10.8)
[2021-01-26 20:01] LABS: CLARITY,URINE CLEAR (CLEAR); HCG UR QUAL NEGATIVE
[2021-01-26 20:12] LABS: ALBUMIN 3.9 g/dL (3.2-5.5); BILIRUBIN,TOTAL 0.7 mg/dL (0.2-1.0); CALCIUM 9.1 mg/dL (8.5-10.3); CREATININE 0.8 mg/dL (0.4-1.0); POTASSIUM 3.3 mmol/L (3.5-5.0); TOTAL PROTEIN 7.9 g/dL (6.7-8.2)
[2021-01-26 21:31] VITALS: BP 130/91
== END 2021-01-26 21:37 | disposition home or self-care (01) ==
LOC: ED 19:20
DX: G44.89 Other headache syndrome (principal); R07.82 Intercostal pain
CPT/HCPCS: 36415; 80053; 81001; 81003; 81025; 83690; 84484; 85025; 87086; 93005; 96374; 99284

== ENCOUNTER 2022-04-30 10:47 | Emergency (ER) | payer MEDICAID ==
[2022-04-30 11:21] LABS: RAPID STREP SCREEN Negative (Negative)
[2022-04-30] MEDS ORDERED: predniSONE 20 MG TABLET PO STA (12:34)
[2022-04-30] MEDS ORDERED: HYDROcod/ACETAM 5/325 MG TABLET PO STA (12:34)
[2022-04-30] MEDS ORDERED: AMOX/CLAV 875 MG/125 MG TABLET PO STA (12:34)
--- NOTE | 2022-04-30 12:36 | ED Physician Documentation ---
PD HPI URI - Stated complaint Stated Complaint: THROAT PX - Chief complaint Chief Complaint: Heent - History obtained from History obtained from: Patient - Additional information Additional information: Sore throat starting yesterday with some nasal congestion and cough. Pain much worse on the right than the left. No fevers. 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 - Present Medications Home Medications: Ambulatory Orders Medication Instructions Recorded Confirmed HYDROcod/ACETAM 5/325 [[place] 5/325] 1 - 2 ea PO Q6H PRN 06/11/18 06/11/18 Ibuprofen 200 mg PO PRN PRN MDD pain 06/11/18 06/11/18 Amox/Clav 875/125 [Augmentin] 1 each PO Q12H #20 tablet 04/30/22 HYDROcod/ACETAM 5/325 [[place] 5/325] 1 - 2 tab PO Q6H PRN #15 tablet 04/30/22 predniSONE [Deltasone] 60 mg PO DAILY 5 Days #15 tablet 04/30/22 - Allergies Allergies/Adverse Reactions: Allergies Allergy/AdvReac Type Severity Reaction Status Date / Time No Known Drug Allergies Allergy Verified 04/30/22 11:05 - Social History Does the pt smoke?: No Smoking Status: Never smoker Does the pt drink ETOH?: Yes Does the pt have substance abuse?: No - Immunizations Immunizations are current?: Yes - POLST Patient has POLST: No PD ED PE NORMAL - Vitals Vital signs reviewed: Yes - General General: Alert and oriented X 3, No acute distress - HEENT HEENT: Ears normal, Other (She does have some asymmetry of the tonsils with the right being larger than the left. No clear abscess but certainly concerning for an early abscess. She also has mild trismus.) - Neck Neck: Supple, no meningeal sign, No bony TTP, Other (Cervical adenopathy anteriorly) - Neuro Neuro: Alert and oriented X 3, Normal speech - Psych Psych: Normal mood, Normal affect Results - Vitals Vitals: Vital Signs - 24 hr 04/30/22 11:02 Temperature 37.0 C Heart Rate 108 H Respiratory 16 Rate Blood Pressure 148/100 H O2 Saturation 100 Oxygen O2 Source Room air - Labs Labs: Laboratory Tests 04/30/22 11:05 Group A Strep Rapid Negative PD Medical Decision Making - ED course ED course: 36-year-old woman with sore throat. Exam is concerning for very early [employer] and will treat for same. Given close return precautions. Departure - Departure Disposition: 01 Home, Self Care Clinical Impression: Peritonsillar abscess Condition: Good Record reviewed to determine appropriate education?: Yes Instructions: ED Peritonsillar Abscess Prescriptions: Amox/Clav 875/125 [Augmentin] 1 each PO Q12H #20 tablet predniSONE [Deltasone] 60 mg PO DAILY 5 Days #15 tablet HYDROcod/ACETAM 5/325 [[place] 5/325] 1 - 2 tab PO Q6H PRN #15 tablet PRN Reason: Pain Comments: I sent your prescriptions electronically to [facility] in [place] Return in 2 to 3 days if not improving, sooner if worse. I am prescribing a short course of narcotic pain medication for you. These are potentially dangerous and addictive medications that should be used carefully. These medications may constipate you. Take an yipe-wyr-hwwwool stool softener (docusate) twice daily with plenty of water while taking these medications. If you go 24 hours without a bowel movement, take [id number] miralax, per package instructions. Do not drink or drive while taking these medications. If you received narcotic or sedating medications while in the emergency department, do not drive for 24 hours. Store this medication in a safe, secure place and out of reach of children. It is a violation of federal law to give or sell this medication to another person or to use in a manner other than prescribed. The ED will not refill narcotic prescriptions, including prescriptions lost or stolen. To dispose of unwanted medications: 1. [facility] at [address] in [place] has a medication drop box. They accept prescription medications (in pill form) Friday through Friday 9:00 a.m. to 5:00 p.m. 2. The [facility] [place] [employer] accepts prescription medications (in pill form only) for disposal year round. Call for more informa tion. 3. Contact the [facility] for the next [facility] sponsored prescription drug collection event. , [phone], or [phone]; Note that many narcotic pain relievers also contain Tylenol/acetaminophen. Please ensure that your total dose of acetaminophen from all sources does not exceed 3 g (3000 mg) per day. Forms: Activity restrictions
[2022-04-30 13:05] VITALS: BP 140/98
== END 2022-04-30 13:05 | disposition home or self-care (01) ==
LOC: ED 10:47
DX: J36 Peritonsillar abscess (principal)
CPT/HCPCS: 87070; 87430; 99283; A9270; J7512